=== PATIENT | female | born 1980 | race African-American/Black ===

== ENCOUNTER 2024-09-14 15:46 | Outpatient (CLI) | payer BC, SELFPAY ==
--- NOTE | ~2024-09-14 | US_ITS ---
EXAMINATION: US thyroid DATE: 09/14/2024 16:50 INDICATION: Thyroid nodule TECHNIQUE: Multiple ultrasound images of the thyroid were obtained. COMPARISON: None. FINDINGS: The right thyroid lobe measures 5.7 x 1.7 x 1.5 cm. The left thyroid lobe measures 5.1 x 1.4 x 2.1 cm. Within the upper pole of the left lobe of the thyroid gland is a 16 x 9 x 9.4 mm nodule: Composition - spongiform Echogenicity -hyperechoic or isoechoic (1) Shape - wider than tall Margin - smooth Echogenic foci -punctate echogenic foci (3) = TR 4, moderately suspicious FNA if greater than or equal to 1.5 cm Follow if greater than 1 cm The isthmus measures 0.4cm in anterior to posterior dimension. There is otherwise normal echotexture and echogenicity throughout the remainder of the thyroid gland. No additional discrete nodules identified. Normal vascular flow is present. IMPRESSION: TR 4 nodule within the upper pole of the left lobe of the thyroid gland (largely secondary to the otilio rocalcifications) for which FNA is recommended. Reviewed, dictated and finalized at location A. IMPRESSION: TR 4 nodule within the upper pole of the left lobe of the thyroid gland (largel y secondary to the microcalcifications) for which FNA is recommended.
--- OUTSIDE RECORDS SUMMARY | 2024-09-14 15:52 | XMS_ITS | Clinical Summary ---
Author Organization [facility] Address [facility] [place] [address] Care Team Providers Care Anesthesia Associate Name Role Phone Abby Benitez MD Primary Care Provider [phone] Medications losartan (COZAAR) 100 MG tablet Take 1 tablet (100 mg total) by mouth daily. Active amLODIPine (NORVASC) 10 MG tablet Take 1 tablet (10 mg total) by mouth daily. Active methylPREDNISo MISSY yun, (MEDROL DOSEPAK) 4 MG tabletIndicati ons:Foraminal stenosis of cervical region,Cervica l radiculopathy, Myofascial neck pain Take 1 tablet (4 mg total) by mouth see administration instructions. Follow package directions 1 each Active Active Problems Problem Noted Date Diagnosed Date Foraminal stenosis of cervical region 08/03/2024 Cervical radiculopathy 08/03/2024 Degenerative disc disease, cervical 08/03/2024 Spinal stenosis of cervical region 08/03/2024 Encounters Date Type Department Care Team Description 08/03/2024 11:00 AM CHIEF OPERATOR REFORMER Office Visit [facility] - [address], [address] [place] [phone] Michelle Chaudhary APRN New Patient (Cervical Spine ) 08/03/2024 Travel from Last 3 Months Social History Tobacco Use Types Packs/Day Years Used Date Smoking Tobacco: Every Day Cigarettes Smokeless Tobacco: Never Tobacco Cessation:Ready to Q uit: No; Counseling Given: No PHQ-2 Answer Date Recorded Patient Health Questionnaire-2 Score 0 08/03/2024 Comments Unknown Sex and Gender Information Value Date Recorded Sex Assigned at Not on file Legal Sex Female 1:00 PM CDT Gender Identity Not on file Sexual Orientation Not on file Last Filed Vital Signs Vital Sign Reading Time Taken Comments Blood Pressure 173/10 08/03/2024 11:29 AM CHIEF OPERATOR REFORMER Pulse 70 08/03/2024 11:06 AM CHIEF OPERATOR REFORMER Temperature 36.6 C (97.9 F) 08/03/2024 11:06 AM CHIEF OPERATOR REFORMER Respiratory Rate - - Oxygen Saturation 99% 08/03/2024 11:06 AM CHIEF OPERATOR REFORMER Inhaled Oxygen Concentration - - Weight 89.1 kg (196 lb 6.4 oz) 08/03/2024 11:06 AM CHIEF OPERATOR REFORMER Height 172.7 cm (5' 8 ) 08/03/2024 11:06 AM CHIEF OPERATOR REFORMER Body Mass Index 29.86 08/03/2024 11:06 AM CHIEF OPERATOR REFORMER Plan of Treatment Upcoming Encounters Date Type Department Care Team (Late st Contact Info) Description 09/28/2024 10:20 AM CDT Office Visit [facility] - [facility] [address] [facility], [address] [place] [phone] Michelle Chaudhary APRN [address] [facility] [address] [place] [address] Health Maintenance Due Date Last Done Comments Cervical Cancer Screening Pa p Smear (Age 30 to 64) Every 3 Years 1981 Annual Physical 1984 Pneumococcal Vaccine: Pediat rics (0 to 5 Years) and At-Risk Patients (6 to 64 Years) (1 of 2 - PCV) 10/15/1987 Hepatitis C 10/15/1999 DTaP, Tdap and Td Vaccines ( 1 - Tdap) 2000 Hepatitis B Vaccines (1 of 3 - 19+ 3-dose series) 2000 Cervical Cancer Screening Pa p with HPV Testing (Age 30 to 64) Every 5 Years 10/15/2011 Cervical Cancer Screening with HPV 10/15/2011 Mammogram Screening 2021 COVID-19 Vaccine ( - 2023-2 5 season) 2024 PHQ-2 (Physician [place]) Completed 08/03/2024 HPV Vaccines Aged Out No longer eligi ble based on patient's age to complete this topic Meningococcal B Vaccine Aged Out No l onger eligible based on patient's age to complete this topic Meningococcal Vaccine Aged Out No brandan maikol eligible based on patient's age to complete this topic RSV Immunizations Under 20 Months Aged Out No longer eligible based on patient's age to complete this topic Insurance MEDICAID [id number] Care Teams Anesthesia Associate Relationship Specialty [place] [address] [place] [id number] PCP - General INTERNAL MEDICINE 02/04/24
--- OUTSIDE RECORDS SUMMARY | 2024-09-14 15:53 | XMS_ITS | Data Portability ---
Author Organization [facility] Hannah Serrano Address [address] [place] [address] Care Team Providers Care Design Draftsman Name Role Phone ABBY MONTEZ Primary Care Provider [phone] Assessment No assessment recorded. Plan of Treatment Reminders Order Date Submit Date Provider Last Modified By Organization Details Last Modified Time Details Appointments ANY 15 2024 09:15A M Abby Montez MD Not available Not available Not available Lab PPD (purifie d protein derivati ve), skin test 2023 024 JOHN In-Office Order, Internal Use Only DO Not Attach Compendium DO Not Attach Compendium, Do Not Delete/merge, [id number] 01/26/2024 19:01:25 PPD (purifie d protein derivati ve), skin test 2023 024 JOHN In-Office Order, Internal Use Only DO Not Attach Compendium DO Not Attach Compendium, Do Not Delete/merge, [id number] 01/19/2024 19:14:41 vitamin D, 25-hydro xy, total, serum 2023 024 [place], [address], [address] [address], [place], [address], 11/16/2023 06:17:49 Referral None recorded . Procedures None recorded . Surgeries None recorded . Imaging XR, shoulder , 1 view 2023 024 [facility] ([facility]), [address] [place], [address], 02/21/2024 16:13:52 Medication Orders ergocalc iferol (vitamin D2) 1,250 mcg (50,000 unit) capsule 2024 025 [id number], [address], [place], [place], [id number], 06/22/2024 10:40:09 ibuprofe n 600 mg tablet 2024 025 [facility] #[id number], [address], [place], [place], [id number], 06/22/2024 10:40:11 amlodipi ne 10 mg tablet 2023 024 [facility] #[id number], [address], [place], [place], [id number], 02/17/2024 17:43:39 losartan 25 mg tablet 2023 024 [facility] #[id number], [address], [place], [place], [id number], 02/17/2024 17:41:43 Tubersol 5 tub. unit/0.1 mL intrader mal injectio n solution 2023 024 [email or web address] Not available 01/24/2024 20:24:56 Tubersol 5 tub. unit/0.1 mL intrader mal injectio n solution 2023 024 [email or web address] Not available 01/17/2024 16:53:03 ergocalc iferol (vitamin D2) 1,250 mcg (50,000 unit) capsule 2023 024 [place], [address] [place] [address], [id number], 10/25/2023 18:04:38 Patient Targets Encounter Date Encounter Id Patient Goals Patient Target Last Modified By Organization Details Last Modified Time Physically cleared for normal employment activities. TB skin test administered and is pending. [email or web address] Not available 01/17/2024 16:46:05 Patient Instructions Encounter Date Encounter Id Patient Instructions Last Modified By Organization Details Last Modified Time 10/25/2023 [id number] thyroid nodules: care instructions Not available 10/25/2023 17:36:56 A healthy lifestyle: care instructions [email or web address] Not available 10/25/2023 17:35:10 01/17/2024 [id number] A healthy lifestyle: care instructions [email or web address] Not available 01/17/2024 16:46:18 Quitting Tobacco : Care Instructions [email or web address] Not available 01/17/2024 16:46:18 tuberculin skin test: care instructions Not available 01/17/2024 16:46:18 01/24/2024 [id number] A healthy lifestyle: care instructions [email or web address] Not available 01/24/2024 17:36:12 02/17/2024 [id number] learning about high blood pressure Not available 02/17/2024 17:39:41 06/22/2024 [id number] thyroid nodules: care instructions [email or web address] Not available 06/22/2024 10:39:53 learning about high blood pressure [email or web address] Not available 06/22/2024 10:39:53 Reason for Referral None Reported. Results Created Date Observation Date Name Description Value Unit Range Abnormal Flag Note LastModifiedBy Organization Detail LastModifiedTime 11/15/1911/16/2023 THYRO XINE (T4) FREE, DIREC T T4,free(dire ct) 1.03 NG/dL 0.82-1 .77 Not Available [facility] ([facility]) [address] [place], [address], 11/16/2023 06:17:47 11/15/1911/16/2023 TRIIO DOTHY MELISSA E (T3), FREE triiodothyro nine (T3), free 2.7 pg/mL 2.0-4. 4 Not Available [facility] ([facility]) [address] [place], [address], 11/16/2023 06:17:47 11/15/19 24 11/16/2023 VITAM IN D, 25-HY DROXY vitamin D, 25-hydroxy 14.0 NG/mL 30.0-1 00.0 below low normal Vitam in D defic iency has been defin ed by the Insti tute of Medic ine and an Endoc rine Socie ty pract ice guide line as a level of serum 25-OH vitam in D less than 20 ng/mL (1,2) . The Endoc rine Socie ty went on to furth er defin e vitam in D insuf ficie ncy as a level betwe en 21 and 29 ng/mL (2). 1. IOM (Inst itute of Medic ine). 2009. Elias ry refer ence balbir es for calci um and D. Horace lagunas [place]: The [facility] . 2. Larry whitley MF, Arias cueva [place], Zachariah off-F errar i LANDRY, et al. Evalu ation , treat ment, and preve ntion of vitam in D defic iency : an Endoc rine Socie ty clini tiffany pract ice guide line. JCEM. 2010; 96(7) :1911 -30. Not Available [facility] ([facility]) [address] [facility], [place], [address], 11/16/2023 06:17:49 01/19/20 24 01/19/2024 PPD (lindsey fied prote in deriv ative ), skin test Result Negati ve Not Available In-Office Order Internal Use Only DO Not Attach Compendium DO Not Attach Compendium, Do Not Delete/merge, [id number] 01/17/2024 16:45:09 01/26/20 24 01/26/2024 PPD (lindsey fied prote in deriv ative ), skin test Result Negati ve Not Available In-Office Order Internal Use Only DO Not Attach Compendium DO Not Attach Compendium, Do Not Delete/merge, [id number] 01/24/2024 17:36:04 10/04/19 24 10/04/2023 MRI, cervi tiffany spine , w/o contr ast No observ ation record ed. [address] [place], [address], 10/17/2023 21:51:39 10/30/19 24 10/30/2023 XR, chest No observ ation record ed. [address] [place], [address], 10/31/2023 16:56:07 02/21/20 24 02/21/2024 XR, shoul ángela, 1 view No observ ation record ed. [facility] [address] [place], [address], 02/24/2024 14:40:39 04/12/20 24 04/12/2024 US, james t, unila teral , limit ed No observ ation record ed. [facility]uling [address] [place], [address], 04/21/2024 14:04:30 04/12/20 24 04/12/2024 US, james elmore, unila teral No observ ation record ed. [facility] Scheduling [address] [place], [address], 04/21/2024 14:04:31 Result Notes None recorded. Problems Name Problem SNOMED Code Status Onset Date Resolution Date Notes Provider Name and Address Organization Details Recorded Time Chronic constipat ion 980558880 Active 2016 Not Available [facility] 3 18:57:18 Family history of diabetes mellitus 204531127 Active 2018 Not Available [facility] 3 18:57:18 Herpes simplex type 2 infection 482476875 Active 2016 Not Available [facility] 3 18:57:18 Difficult y swallowin g pills 39109065547 01 Active 2018 Not Available [facility] 3 18:57:19 Edema of lower leg 525625646 Active 2018 Not Available [facility] 3 18:57:18 Infection by Trichomon as 68975522 Active 2019 Not Available [facility] 3 18:57:19 Tuberculo sis screening Active 2020 [facility] 18:57:18 Upper abdominal pain 41589347 Active 2020 RUQ/LUQ Not Available [facility] 3 18:57:19 Essential hypertens ion 72852478 Active 2021 [facility] Available [facility] 18:57:19 Mammograp hy abnormal 322681702 Active 2021 Not Available [facility] 3 18:57:18 Anemia 973324048 Active 2021 Not Available [facility] 3 18:57:18 Chest pain 94975632 Active 2021 Not Available [facility] 3 18:57:18 Hyperglyc emia 35175653 Active 2021 Not Available [facility] 3 18:57:19 Pain of right knee joint 17553358611 4100 Active 2022 Not Available [facility] 3 18:57:18 Atypical chest pain 786174995 Active 2022 Not Available [facility] 3 18:57:18 Carotid bruit present 586063650 Active 2022 Left Not Available [facility] 3 18:57:18 Hematoche mani 698633913 Active 2022 Not Available [facility] 3 18:57:18 Family history of polyp of colon 605141838 Active 2022 Not Available [facility] 3 18:57:18 Vitamin D deficienc y 31571487 Active 2022 Not Available [facility] 3 18:57:18 Pain of left shoulder joint 95718573050 982788 Active 2023 Abby Montez MD Attn: [place], [address] , [facility] 4 17:30:24 Thyroid stimulati ng hormone level below reference range 193585155 Active 2023 Abby Montez MD Attn: Accounting ,[address] [facility], [place], [address] , [place] [facility] 4 10:54:39 Weakness of left upper limb Active 2023 Abby Montez MD Attn: Accounting ,[address] [facility], [place], [address] , [place] [facility] 4 16:44:57 Thyroid nodule 086653625 Active 2023 left Abby Montez MD Attn: Accounting ,[address] [facility], [place], [address] , [place] [facility] 4 16:48:45 Disorder of cervical spine 634667014 Active 2023 Abby Montez MD Attn: Accounting ,[address] [facility], [place], [address] , [place] [facility] 4 17:26:54 Bacterial vaginosis 054129306 Active Not Available [facility] 3 18:57:18 Hand pain 02905855 Active Not Available [facility] 3 18:57:18 Carpal tunnel syndrome 79680025 Active Not Available [facility] 3 18:57:19 Urinary tract infectiou s disease 87152674 Active 2015 [facility] Not Available [facility] 3 18:57:19 History of bronchiti s 945425023 Active 2015 used inhaler last 12\04\201 6 Not Available [facility] 3 18:57:18 Problem Notes None recorded. Procedures Surgical History Date Name Laterality Status Provider Name and Address Organization Details Recorded Time 12/29/2021 Date of Last Pap Smear completed Claudia Arcos [place] [facility] 08/05/2023 11:51:02 Imaging Results Imaging Date Name Status LastModified by Organiz ation Details LastModified Time 10/04/2023 MRI, cervical spine, w/o contrast [place] [address] [place], [address], 10/17/2023 21:51:39 10/30/2023 XR, chest completed [email or web address] [place], [address], 10/31/2023 16:56:07 02/21/2024 XR, shoulder, 1 view completed [facility] [address] [place], [address], 02/24/2024 14:40:39 04/12/2024 US, breast, unilateral, limited completed [facility]uling [address] [place], [address], 04/21/2024 14:04:30 04/12/2024 US, breast, unilateral completed [facility] Scheduling [address] [place], [address], 04/21/2024 14:04:31 Procedure Notes None recorded. Medical Equipment None Reported. Allergies No known drug allergies Medications Name Sig Start Date Stop Date Status Note LastModified by Organization Details LastModified Time cyclobenzap rine 10 mg tablet 12/29 completed Not Available Not Available Not Available amoxicillin 500 mg capsule 10/15 completed Not Available Not Available Not Available clindamycin HCl 300 mg capsule 12/29 completed Not Available Not Available Not Available azithromyci n 250 mg tablet 06/01 completed Not Available Not Available Not Available ibuprofen 800 mg tablet 12/29 completed Not Available Not Available Not Available fluconazole 150 mg tablet TAKE 1 TABLET BY MOUTH AFTER A MEAL NEEDED 06/12 completed Not Available Not Available Not Available hydrocodone 5 mg-acetamin ophen 325 mg tablet 05/18 completed Not Available Not Available Not Available meloxicam 15 mg tablet 12/29 completed Not Available Not Available Not Available metronidazo le 0.75 % (37.5 mg/5 gram) vaginal gel Insert 1 applicato rful every day by vaginal route at bedtime for 5 days. 06/12 completed Not Available Not Available Not Available ondansetron HCl 4 mg tablet 12/29 completed Not Available Not Available Not Available Tubersol 5 tub. unit/0.1 mL intradermal injection solution Administe r .1ml interderm ally 2023 active Not Available Not Available Not Avai lable metronidazo le 250 mg tablet Take 1 tablet 3 times a day by oral route with meals for 7 days. 12/29 completed Not Available Not Available Not Available metronidazo le 500 mg tablet TAKE ONE TABLET TWICE DAILY BY ORAL ROUTE WITH MEALS FOR SEVEN DAYS 10/15 completed Not Available Not Available Not Available acetaminoph en 300 mg-codeine 30 mg tablet 12/16 completed Not Available Not Available Not Available acyclovir 400 mg tablet Take 1 tablet twice a day by oral route with meals for 60 days. 12/29 completed Not Available Not Available Not Available peg-electro lyte solution 420 gram oral solution USE DIRECTED 07/27 completed Not Available Not Available Not Available amlodipine 10 mg tablet TAKE 1 TABLET BY MOUTH EVERY MORNING active Not Available Not Available No t Available acyclovir 5 % topical ointment APPLY TO THE AFFECTED AREA(S) BY TOPICAL ROUTE EVERY 3 HOURS 6 TIMES PER DAY 12/29 completed Not Available Not Available Not Available losartan 25 mg tablet Take 1 tablet every day by oral route. 2023 active Not Available Not Available Not Avai lable docusate sodium 100 mg capsule Take 1 capsule every day by oral route. 12/29 completed Not Available Not Available Not Available ergocalcife rol (vitamin D2) 1,250 mcg (50,000 unit) capsule Take 1 capsule every week by oral route. 2024 active Not Available Not Available Not Avai lable ibuprofen 600 mg tablet Take 1 tablet 3 times a day by oral route as needed. 2024 active Not Available Not Available Not Avai lable levofloxaci n 750 mg tablet 06/12 completed Not Available Not Available Not Available methylpredn isolone 4 mg tablets in a dose pack FOLLOW PACKAGE DIRECTION S active Not Available Not Available No t Available albuterol sulfate HFA 90 mcg/actuati on aerosol inhaler active Not Available Not Available Not Available losartan 100 mg tablet TAKE 1 TABLET BY MOUTH EVERY DAY active Not Available Not Available No t Available naproxen 500 mg tablet Take 1 tablet twice a day by oral route as needed for 10 days. 12/29 completed Not Available Not Available Not Available nitrofurant oin monohydrate /macrocryst als 100 mg capsule 06/12 completed Not Available Not Available Not Available 28 mg iron-800 mcg tablet Take 1 tablet every day by oral route for 30 days. 09/06 completed Not Available Not Available Not Available Linzess 145 mcg capsule TAKE ONE CAPSULE BY MOUTH EVERY DAY with a meal 10/15 completed Not Available Not Available Not Available Vitals Date Recorded Body height Body mass index (BMI) Body weight Heart rate Oxygen saturation Oxygen saturation in Arterial blood by Pulse oximetry Systolic blood pressure Diastolic blood pressure Provider Name and Address Organization Details Last Updated DateTime 4 172.72 cm 29.2 kg/m2 80707.7 4 g 86 /min 97 % 97 % 142 mm[Hg] 88 mm[Hg] Teetee Padilla MA [facility] 4 17:15:48 Date Recorded Body height Body mass index (BMI) Body weight Oxygen saturation Oxygen saturation in Arterial blood by Pulse oximetry Heart rate Respiratory rate Body temperature Systolic blood pressure Diastolic blood pressure Provider Name and Address Organization Details Last Updated DateTime 4 172.72 cm 29.2 kg/m2 61673.7 4 g 99 % 99 % 74 /min 16 /min 98.1 [degF] 148 mm[Hg] 89 mm[Hg] Liam Talbert MA [facility] 4 16:37:36 Date Recorded Body height Body mass index (BMI) Body weight Oxygen saturation Oxygen saturation in Arterial blood by Pulse oximetry Heart rate Body temperature Systolic blood pressure Diastolic blood pressure Provider Name and Address Organization Details Last Updated DateTime 4 172.72 cm 29.6 kg/m2 31828.0 7 g 100 % 100 % 73 /min 98.6 [degF] 127 mm[Hg] 81 mm[Hg] Nasima Milton MA [facility] 4 17:28:27 Date Recorded Body height Body mass index (BMI) Body weight Heart rate Oxygen saturation Oxygen saturation in Arterial blood by Pulse oximetry Systolic blood pressure Diastolic blood pressure Provider Name and Address Organization Details Last Updated DateTime 4 172.72 cm 29.2 kg/m2 12869.7 4 g 81 /min 98 % 98 % 130 mm[Hg] 80 mm[Hg] Lexus Lo MA [facility] 4 16:48:09 Date Recorded Body height Body mass index (BMI) Body weight Oxygen saturation Oxygen saturation in Arterial blood by Pulse oximetry Heart rate Systolic blood pressure Diastolic blood pressure Provider Name and Address Organization Details Last Updated DateTime 5 172.72 cm 30.4 kg/m2 18428.4 7 g 98 % 98 % 71 /min 125 mm[Hg] 77 mm[Hg] Artur Cruz MA [facility] 5 10:17:59 Social History Question Answer Notes LastModified by Organizat ion Details LastModified Time Tobacco Smoking Status Current Some Day Smoker Beatriz King MA [facility] 09/07/2023 16:17:25 Do You Have An Advance Directive? No Information not available 12/29/2021 What Is Your Level Of Alcohol Consumption? None [email or web address] Information not available 05/16/2015 Is Blood Transfusion Acceptable In An Emergency? No [email or web address] Information not available 05/16/2015 What Is Your Level Of Caffeine Consumption? Heavy [email or web address] Information not available 05/16/2015 How Much Tobacco Do You Chew? None [email or web address] Information not available 05/16/2015 In The 14 Days Before Symptom Onset, Have You Had Close Contact With A Laboratory-confir med COVID-19 While That Case Was Ill? No Information not available 12/29/2021 In The 14 Days Before Symptom Onset, Have You Had Close Contact With A Person Who Is Under Investigation For COVID-19 While That Person Was Ill? No Information not available 12/29/2021 Have You Been To An Area Known To Be High Risk For COVID-19? No Information not available 12/29/2021 Are You Currently Employed? Yes [email or web address] Information not available 05/16/2015 What Type Of Diet Are You Following? REGULAR Information not available 05/16/2015 Which Illicit Or Recreational Drugs Have You Used? 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 Alone [email or web address] Information not available 05/16/2015 What Was The Date Of Your Most Recent Tobacco Screening? 06/22/2024 Information not available 06/22/2024 How Many Children Do You Have? 1 [email or web address] Information not available 05/16/2015 What Is Your Current Pack Years? [email or web address] Information not available 01/24/2024 Performs Monthly Self-breast Exam? Yes [email or web address] Information no t available 05/16/2015 Do You Use Protection During Sex? Usually 80% [email or web address] Information not available 05/16/2015 What Is Your Relationship Status? Single [email or web address] Information not available 05/16/2015 Seat Belts Used Routinely Yes Information not available 05/16/2015 Are You Sexually Active? Yes [email or web address] Information not available 05/16/2015 Do You Have Smoke And Carbon Monoxide Detectors In Your Home? Yes Information not available 12/29/2021 At What Age Did You Start Smoking Tobacco? 16 [email or web address] Information not available 05/16/2015 Are You Passively Exposed To Smoke? Yes Information no t available 12/29/2021 How Much Tobacco Do You Smoke? 1 PPW About 1 Daily [email or web address] Information not available 07/27/2023 General Stress Level Low [email or web address] Information not available 05/16/2015 Do You Feel Stressed (tense, Restless, Nervous, Or Anxious, Or Unable To Sleep At Night)? [id number] Information not available 01/24/2024 Do You Use Any Illicit Or Recreational Drugs? No Information not available 12/29/2021 Do You Use Sunscreen Routinely? No [email or web address] Information not available 05/16/2015 Has Tobacco Cessation Counseling Been Provided? Yes Information not available 12/29/2021 On What Date Was Tobacco Cessation Counseling Provided? 06/22/2024 Information not available 06/22/2024 How Many Years Have You Smoked Tobacco? 18 Information not available 05/16/2015 Do You Or Have You Ever Used Any Other Forms Of Tobacco Or Nicotine? No Information not available 12/29/2021 Sex: Female Functional Status Question Answer Note LastModified by Organization D etails LastModified Time What is your exercise level? Moderate [email or web address] Information not available 05/16/2015 Mental Status None recorded. Family History Relationship Description Onset Age of this Age Resolved Age Notes LastModified by Organization Details LastModified Time Mother Diabetes mellitus [email or web address] rs Not available 11/26/2015 11:04:11 Sister Diabetes mellitus alesha rs Not available 11/26/2015 11:04:11 Maternal Grandmother Hypertensive disorder [email or web address] rs Not available 11/26/2015 11:04:11 Maternal Grandmother Diabetes mellitus alesha rs Not available 11/26/2015 11:04:11 Medical History Condition Response Other Y High Blood Pressure N Breast Cancer N Thyroid Problems N Kidney or Bladder Problems Y GI Problems N Depression N Blood Clots N Lung Disease N Acne N Breast Problem N Eating Disorder N Anemia N Anesthesia Complications N Headaches/Migraines Y Anxiety Disorder N Diabetes N Ovarian Cancer N Muscle, Joint, or Bone Problems N Blood Transfusions N Seizures/Epilepsy N Polyps N Infertility N Acid Reflux (GERD) N Cancer N Abuse/Domestic Violence N Asthma N Endometriosis N High Cholesterol N Hepatitis N Liver Disease N Heart Disease N Pre-Eclampsia N Osteoporosis N Gynecological History Statement/Question Response Abnormal Pap N Flow Heavy Date of LMP 06/05/2024 On BCP's at Conception? Y STIs/STDs N HPV Vaccine N Duration of Flow (days) 7 Most Recent Mammogram Age at Menarche 13 Current Control Method None Age at First Child 19 Frequency of Cycle (Q days) 28 Sexually Active? Y Menses Monthly Y Date of Last Pap Smear 12/29/2021 Sexual Problems? N LMP Approximate Desired Control Method Seeking Pre gnancy Obstetrics History GPAL:G 1 P 1 0 0 1 Type Value Multiple Births 0 Full Term 1 Induced 0 Spontaneous 0 Premature 0 Living 1 Ectopics 0 Total 1 Immunizations Vaccine Type Date Status Note Provider Nam e and Address Organization Details Recorded Time Influenza, high-dose, trivalent, PF 05/16/2015 completed Not Available [facility] 2022 18:57:19 Past Encounters Encounter ID Performer Location Encounter Start Date Encounter Closed Date Diagnosis/Indication Diagnosis SNOMED-CT Code Diagnosis ICD10 Code Diagnosis Note [id number] Marita Carrillo [facility] (AUDITOR SUPERVISOR) [address] [place] [phone] 05/16/2015 10:12:02 05/16/2015 17:34:29 Gynecologic examination 44065909 Z01.411 Bacterial vaginosis 4197 55704 N76.0 High risk sexual behavior 991020028 Z72.51 desires no BCM c\o tender breast [id number] Francia [facility] (Adult/Fa m Med) [address] [place] [address] 9 09/24/2015 11:03:32 09/25/2015 11:05:04 Hand pain 54700840 M79.641 Carpal karl gissel syndrome 27121387 G56.01 [id number] Francia [facility] (Adult/Fa m Med) [address] [place] [address] 9 10/08/2015 10:32:20 10/08/2015 12:48:12 Carpal tunnel syndrome 47646022 G56.01 Hand pain 46833592 M79.6 41 [id number] Marita Carrillo [facility] (AUDITOR SUPERVISOR) [address] [place], [place] [id number] 9 11/26/2015 10:44:57 11/26/2015 16:21:44 Urinary tract infectious disease 30381635 N39.0 f\u today r\t UTI @ [facility] on took all meds and denies cont. S & S urine C & S to lab today. denies unprotecte d coitus with current sex partner of X 6 years; denies hx. of STI's. High risk sexual behavior 495444032 Z72.51 admits to unprotecte d coitus with new sex partner of X 90 days. [id number] Marita Carrillo [facility] (AUDITOR SUPERVISOR) [address] [place] [id number] 05/18/2016 10:25:36 07/29/2016 11:51:58 Gynecologic examination 97196013 Z01.411 pap was WNL; c\o constipati on Chronic constipation 236 484333 K59.00 discussed water intake 5-6 rafy jars daily, but still has constipati on Exposure t o sexually transmissible disorder [id number] Z20.2 with current sex partner X 18 mo. gives no previous hx. of STI's until today will r\o other STI's also request & received Blood STI screening also Trichomona l vulvovaginitis 24160743 A59.01 on wet mount today [id number] Marita Carrillo [facility] (AUDITOR SUPERVISOR) [address] [place], [place] [address] 06/09/2016 10:26:30 06/17/2016 11:36:45 Exposure to sexually transmissible disorder 459444012 Z20.2 with current sex partner X 18 mo. gives no previous hx. of STI's until will r\o other STI's also request & received Blood STI screening also Herpes sim plex type 1 infection 831464989 B00.9 Herpes sim plex type 2 infection 124357246 B00.9 Leukocytes in urine 2757 65617 R82.71 [id number] [facility] (Adult/Fa m Med) [address] [place], [place] [address] 05/03/2017 10:21:49 05/19/2017 17:03:33 Screening for disorder 389498494 Z13.9 Venereal d isease screening 126729413 Z11.3 [id number] [facility] (Adult/Fa m Med) [address] [place] [address] 9 05/17/2017 10:39:26 05/26/2017 10:46:42 Increased blood pressure 43704958 R03.0 High risk sexual behavior 233539427 Z72.51 Screening for disorder 563806084 Z13.9 [id number] Marita Carrillo [facility] (AUDITOR SUPERVISOR) [address] [place] [address]78[address]632 9 06/01/2017 11:48:54 06/02/2017 11:09:38 Gynecologic examination 73461617 Z01.411 History of sexually transmitted disease 938974416 Z87.42 dx. per Darren Almanzar treatment recieved today. Trichomona l vulvovaginitis 87415172 A59.01 Chronic constipation 236 133798 K59.09 Herpes sim plex type 2 infection 152920081 B00.9 [id number] Abby Montez MD [facility] (Adult Med) [address] [place] [address] 07/07/2018 10:46:27 07/08/2018 12:47:31 Chronic constipation 384425971 K59.09 Elevated blood-pressure reading without diagnosis of hypertension 712259430 R03.0 Family his tory of diabetes mellitus 078793778 Z83.3 [id number] [facility] [address] [place] [address] 9 07/27/2018 11:19:40 07/29/2018 10:12:01 Gynecologic examination 66380829 Z01.715 [id number] [facility] [address] [place] [address] 9 08/18/2018 12:01:26 08/18/2018 14:57:49 Venereal disease screening 259267369 Z11.3 f\u r\t hx. of + trichomona s on . [id number] [facility] [address] [place] [address] 9 09/06/2018 10:25:56 09/08/2018 15:30:45 Exposure to genital trichomoniasis 598084259 Z20.2 test results are still + for trichomona s since recieved meds tooK ALL meds but advised today that patient had several episodes of emesis with rx. recieved f\u testing remains + on . Nausea and vomiting 1693 1999 R11.2 with previous meds r\t + trichomona s has issues swallowing pills wants to try STAT dose of four tablets @ once with nausea meds rx. recieved today. advised tro try crushing tablets with applesauce to swallow. Increased frequency of urination 770375124 R35.0 Mat. G- MOM & mom r\t diabetes HGB A 1 c negative recently on . Venereal d isease screening 720600509 Z11.3 f\u r\t hx. of + trichomona s on ; second f\u remains + on emesis of meds problem swallowing pills. [id number] MD Benji Vera (Adult Med) [address] [place] [address] 0 06/12/2019 16:30:13 06/12/2019 17:43:04 Edema of lower leg 843489232 R60.0 History of bronchitis 27 3698285 Z87.09 [id number] [facility] [address] [place] [address] 01/03/2020 14:12:27 01/23/2020 21:29:19 Gynecologic examination 13169951 Z01.411 last pap was abnormal r\t + trichomona s otherwise negative for malignancy & HR\MONTSERRAT was also negative. Leukocytes in urine 2757 27397 R82.71 trace with protien & nitrates c\o urinary frequency too. Dysuria-fr equency syndrome 5322817 R35.0 [id number] MD Benji Vera (Adult Med) [address] [place] [address] 0 07/23/2020 08:08:15 07/24/2020 11:49:25 Tuberculosis screening 322599325 Z11.1 Family his tory of diabetes mellitus 394784863 Z83.3 Elevated blood-pressure reading without diagnosis of hypertension 289961794 R03.0 BP check Chronic constipation 236 803790 K59.09 [id number] MD Benji Vera (Adult Med) [address] [place] [address] 0 05/06/2021 11:43:45 05/07/2021 10:28:35 Upper abdominal pain 66076663 R10.10 [id number] [facility] (Adult Med) [address] [place] [address] 0 12/29/2021 08:28:42 12/30/2021 09:20:33 Gynecologic examination 26916173 Z01.419 41 year old female presents today to establish OBGYN care and for WWE. Used to follow with Marita Mcguire for OBGYN care. Follows with Dr. Montez for primary care.LMP 12/18/2021La st pap smear 08/2018, normal, no abnormal papsNot on control- pap smear completed, will call with results Essential hypertension 85728112 I10 Hx of elevated blood pressure in the past but never diagnosed with HTN or started on medication , admits to it being elevated at other visits recentlyBP today: 172/96 and 160/90 Discussed DASH dietAdvise d 30 minutes of exercise minimum dailyAdvis ed tobacco, alcohol, caffeine all increase BPAdvised goal for BP is <140/90Con tact office if BP is > 140/90 consistent lyDIscusse d consequenc es of HTN including kidney, eye, heart damage, stroke, and even - Start amlodipine 10 mg, computers were not working this morning, paper script given to patient- return to see PCP in 2-4 weeks for BP check Venereal d isease screening 028807799 Z11.3 - STD check completed via nuswab during visit today for screening purposes Screening mammography 24 020712 Z12.31 Provided patient with mammogram order, she understand s she needs to call and schedule appointmen t Chronic constipation 236 832597 K59.09 Requesting refill on Linzess- will provide short term supply, will need to get this medication from PCP in the future [id number] MD Benji Vera (Adult Med) [address] [place] [address] 0 01/12/2022 11:28:13 01/13/2022 11:57:13 Essential hypertension 24179496 I10 Continue amlodipine [id number] JIM SCOTT (Adult Med) [address] [place] [address] 0 02/12/2022 09:05:47 02/17/2022 09:55:01 Infection by Trichomonas 50922953 A59.9 Pt tested positive for trich 12/29/21. Pt given rx for metronidaz ole and reports compliance with medication . States partner was treated as well.Idalmis lubin any urinary/va ginal sx today-Pt left urine sample today; will contact pt with results Mammography abnormal 168 762245 R92.8 Mammogram 01/15/2022 showed abnormal findings on R breast but likely benign, rec. repeat again in 6 months- rec. for patient to reach out 07/2022, will get that ordered for her at that time [id number] MD Benji Vera (Adult Med) [address] [place] [address]62[address]100 0 05/20/2022 17:13:45 05/21/2022 15:37:48 Anemia 113984794 D64.9 Trial iron Essential hypertension 03841451 I10 Stable. Continue amlodipine Family his tory of diabetes mellitus 312659415 Z83.3 Chest pain 42076199 R07. 9 Hyperglycemia 85652828 R 73.9 Chronic constipation 236 672751 K59.09 [id number] MD Benji Vera (Adult Med) [address] [place] [address]89-382 0 10/15/2022 16:52:57 10/19/2022 11:59:39 Obesity 160747677 E66.9 Pain of ri ght knee joint 5432338608 17694 M25.561 Essential hypertension 83476435 I10 Stable. Continue amlodipine Atypical chest pain 1025 68384 R07.89 No evidence ischemia Carotid bruit present 27 2013731 R09.89 [id number] MD Benji Vera (Adult Med) [address] [place] [address]91[address]487 0 12/16/2022 16:26:45 12/17/2022 13:04:35 Obesity 604364062 E66.9 Essential hypertension 75682167 I10 Stable. Continue amlodipine Anemia 274143424 D64.9 Trial iron Hyperglycemia 17341086 R 73.9 Pain of ri ght knee joint 9327860603 72192 M25.561 Hematochezia 434329637 K 92.1 Family his tory of polyp of colon 218639873 Z83.71 [id number] JIM SCOTT (Adult Med) [address] [place] [address]081 0 01/19/2023 12:22:08 01/20/2023 14:44:39 Mammography abnormal 962606901 R92.8 Mammogram 01/15/2022 showed abnormal findings on R breast but likely benign, rec. repeat again in 6 months but patient was lost to f/u until nowNo breast complaints today, requesting new referral- mammogram ordered today, call to schedule Overweight 526502625 E66 .3 Advised decreased portion sizes, good food choices, limited eating out or fast food and eliminate soda and juice from diet. Advised physical activity daily and offered encouragem ent to continue with positive changes made so far. Depression screening 171 615577 Z13.31 PHQ 2/9 was negative in office today (0 out of 27) [id number] MD Benji Vera (Adult Med) [address] [place] [address]80[address]413 0 04/19/2023 17:00:38 04/29/2023 12:27:44 Anemia 939408296 D64.9 Referral hematology . Oral B12 Vitamin D deficiency 347 45810 E55.9 Essential hypertension 15750446 I10 Stable. Continue amlodipine Family his tory of diabetes mellitus 384926914 Z83.3 [id number] JIM SCOTT (Adult Med) [address] [place] [address]186[address] 0 05/04/2023 15:08:10 05/05/2023 12:13:39 Overweight 117950286 E66.3 Advised decreased portion sizes, good food choices, limited eating out or fast food and eliminate soda and juice from diet. Advised physical activity daily and offered encouragem ent to continue with positive changes made so far. Mass of right breast 583 8728123 5238218 N63.10 History of abnormal mammogram presents today to discuss recent mammogram results.Ma mmogram 01/15/2022 showed abnormal findings on R breast but likely benign, rec. repeat again in 6 monthsMamm ogram 02/2023 showed focal asymmetry in the R breast at 10 o'clock position, US showed hypoechoic mass in the R breast, likely benign, repeat in 6 months- discussed findings with patient- ordered repeat diagnostic mammogram for 08/2023 [id number] MD Benji Vera (Adult Med) [address] [place] [address]845 0 07/27/2023 16:21:15 07/29/2023 08:08:15 Overweight 833086755 E66.3 Essential hypertension 55720120 I10 Elevated Continue amlodipine . Add losartan Hyperglycemia 31381332 R 73.9 Carpal karl gissel syndrome 12837564 G56.00 Anemia 580386889 D64.9 Referral hematology . Oral B12 Pain of le ft shoulder joint 0980974596 5116821 M25.313 [id number] MD Benji Narayan (Adult Med) [address] [place] [address] 83056-354 0 08/05/2023 11:30:30 08/09/2023 17:25:58 Trying to conceive 512211270 Z31.9 Abnormal u terine bleeding 3876667469 9100 N93.9 Menstrual interval less than thirty days. Has been that way for much of her menstrual time. Recently had an abnormal TSH. Thyroid abnormalit ies could contribute to abnormal bleeding patterns. Will repeat TSH. Essential hypertension 05500637 I10 Blood pressure controlled . Continue medication and follow up with PMD. Mammography abnormal 168 050005 R92.8 Follow up mammogram and ultrasound ordered for August. Patient will call to schedule. Nicotine user 104686105 Z72.0 Recommende d patient quit. [id number] Alli Larson MD [facility] [address] [facility] [address] [place] [address] 08/23/2023 15:30:07 08/24/2023 09:15:26 Trying to conceive 675446855 Z31.9 --Pt informed that she should use ovulation detection kits and have sex during ovulation- -Obtain sperm analysis of --S tart vitamins and folic acid Overweight 726065449 E66 .3 [id number] MD Benji Vera (Adult Med) [address] [place] [address]12[address] 0 09/07/2023 16:05:37 09/08/2023 11:10:14 Weakness of left upper limb 5606971964 04072 M62.81 Thyroid nodule 965430071 E04.1 Essential hypertension 52360701 I10 Recent BP at cardiology [place] . Will continue current medical regimen [id number] MD Benji Vera (Adult Med) [address] [place] [address]18[address]142 0 10/25/2023 16:48:49 10/27/2023 14:28:53 Overweight 806137402 E66.3 Vitamin D deficiency 347 37281 E55.9 Thyroid nodule 626504010 E04.1 F/U endocrinol ogy as scheduled Weakness o f left upper limb 3936870840 54935 M62.81 F/U NS as scheduled [id number] EVIE MujicaP-C [facility] [address] [place] [address] 01/17/2024 16:18:23 01/19/2024 11:58:50 Overweight 915719810 E66.3 Smoker 58455090 F17.200 Adult heal th examination 948349491 Z00.00 Tuberculos is screening 963157975 Z11.1 [id number] MADHU SANDS NP [facility] [address] [place] [address] 01/24/2024 17:12:48 01/25/2024 08:44:26 Overweight 429066858 E66.3 Tuberculos is screening 981335445 Z11.1 [id number] [facility] [address] [place] [address]26[address] 0 02/17/2024 16:29:41 02/17/2024 17:43:59 Disorder of cervical spine 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 Will continue current medical regimen Family his tory of diabetes mellitus 275864141 Z83.3 Pain of le ft shoulder joint 2958065568 5275535 M25.005 [id number] MD Benji Vera (Adult Med) [address] [place] [address]484-896 0 06/22/2024 09:57:19 06/23/2024 15:38:35 Vitamin D deficiency 07666372 E55.9 Disorder o f cervical spine 208569352 M53.81 F/U NS [facility] Essential hypertension 38347319 I10 Recent BP at cardiology [place] . Will continue current medical regimen Family his tory of polyp of colon 480623182 Z83.719 Pain of ri ght knee joint 7871187624 08843 M25.561 Weakness o f left upper limb 8992717741 13717 M62.81 F/U NS as scheduled Thyroid nodule 303597151 E04.1 F/U endocrinol ogy as scheduled Health Concerns Section Related Observation LastModified by Organization Detai ls LastModified Time None Recorded Concern Status LastModified by Organization Details LastModified Time None Recorded Advance Directives Directive N: Payers Encounter Date Sequence Insurance Name Policy Number Policy Huang Covered Member ID Huang Member ID Guarantor Name 10/25/2023 2 [place] [employer] Morenita Larkin [id number] [facility] 01/17/2024 1 [facility] (MEDICAID HM) [id number] Mroenita Larkin [id number] [facility] 01/24/2024 1 [facility] (MEDICAID HMO) [id number] Morenita Larkin [id number] [facility] 02/17/2024 1 [facility] (MEDICAID HMO) [id number] Morenita Larkin [id number] [facility] 06/22/2024 1 [facility] (MEDICAID HMO) [id number] Morenitasunitha Larkin [id number] [facility] Notes Date Note Type Note Provider Name and Address Organization Details Recorded Time 10/25/2023 text/html Here for routine f/u. No new complaints. Scheduled to see NS in three months and interventional physiatrist in six months Abby Montez MD Attn: [address] [place], [address], [facility] 10/25/2023 17:37:17 01/17/2024 text/html Is here for work physical and TB screening. BOWEN Mujica Attn: [address] [place], [address], [facility] 01/17/2024 16:46:36 01/24/2024 text/html Pt is a 43 yo fe male who request tb screening; this will be the second ppd in the series; 1st test negative MADHU WICHO, [employer] Attn: Account[address], [place], [address], [place] [facility] 01/24/2024 17:40:32 02/17/2024 text/html Has not seen NS Abby Montez MD Attn: [address], [place], [address], [place] [facility] 02/17/2024 17:40:45 06/22/2024 text/html Here for routine f/u. No new complaints. Scheduled to see NS and endocrinology within the next month. Needs refil on ibuprofen for painful knees Abby Montez MD Attn: Account[address], [place], [address], [place] [facility] 06/22/2024 10:40:19 OBGyn Episode Ob Episode Information Episode Created Date Number of Fetuses Patient Bloodtype Patient rh Status Prepregnancy Weight lbs Domestic Partner Domestic Partner Phone Father Name Superintendent Menagerie Status 12/30/19 22 1 CLOSED Fetus Data First Name Last Name Admitted to NICU Weight (g) Sex Living Outcome Pediatric Complications Fetus ID Race Codes Race Delivery Type M Full Term [id number] Mervin Calculation Initial Mervin Date Initial Exam Date Initial Exam Provider Initial Ultrasound Date Last Menstrual Period Date Ultra Sound Weeks Gestation 0 Eighteen To Twenty Week Mervin Update Ultra Sound Date Fundal Height At Umbil Quickening Date Ultra Sound Latest Weeks Gestation Final Mervin Confirmed By Final Mervin Confirmed Date Final Mervin Date Ultra Sound Latest Days Gestation 0 0 Menstrual History Last Menstrual Date Menses Monthly On Bcp Conception Prior Menses Frequency Hcg Plus Date Menarche Onset Age Delivery Information Delivery Date Delivery Type Labor Anesthesia Weeks Gestation Incision Type Labor Labor Length Hrs Delivered By Post Complications Tubal Sterilization Discharge Date Comments 0 Discharge Information Feeding Method Contraceptive Method Maternal HG B and HCT Levels
--- OUTSIDE RECORDS SUMMARY | 2024-09-14 15:53 | XMS_ITS | Data Portability ---
Author Organization [place] - [facility], Main Office Address [address] [place] [address] Assessment No assessment recorded. Plan of Treatment Reminders Order Date Submit Date Provider Last Modified By Organization Details Last Modified Time Details Appointments None recorded. Lab None recorded. Referral None recorded. Procedures colonoscopy procedure (PROC) 2022 023 [facility] (Pre-Screen), [address] [place], [address], 08:23:16 Surgeries None recorded. Imaging None recorded. Medication Orders Golytely 236 gram-22.74 gram-6.74 gram-5.86 gram oral solution 2022 023 [facility], [address] [place], [place], [phone], 11:23:43 Patient TargetsNo targets recorded. Patient Instructions Encounter Date Encounter Id Patient Instructions Last Modified By Organization Details Last Modified Time 02/03/2023 [id number] GOLYTELY [email or web address] Not available 15:03:58 PT WITH HEMATOCHEZIA AND BM CHANGES. PT NEEDS A SCREENING COLON . R/O POLYP . RECOMMEND A COLONOSOPY . Risks benefits and complications were explained to the pt. ( BLEEDING PERFORATION , INFECTION , ). PT VERBALIZES UNDERSTANDING AND IS WILLING TO PROCEDE . [email or web address] Not available 02/03/2023 15:04:34 Reason for Referral None Reported. Results Created Date Observation Date Name Description Value Unit Range Abnormal Flag Note LastModifiedBy Organization Detail LastModifiedTime 09/14/20 23 02/24/2023 colon oscop y proce dure (PROC ) No observ ation record ed. [email or web address] [facility] (Pre-Screen) [address] [place], [address], 02/25/2023 08:23:16 Result Notes None recorded. Procedures Surgical History None recorded. Imaging Results Imaging Date Name Status LastModified by Organiz ation Details LastModified Time 02/24/2023 colonoscopy procedure (PROC) completed [email or web address] [facility] (Pre-Screen) [address] [place], [address], 02/25/2023 08:23:16 Procedure Notes None recorded. Medical Equipment None Reported. Allergies No known drug allergies Medications Name Sig Start Date Stop Date Status Note LastModified by Organization Details LastModified Time amoxicillin 500 mg capsule 02/01 completed Not Available Not Available Not Available metronidazo le 500 mg tablet TAKE ONE TABLET TWICE DAILY BY ORAL ROUTE WITH MEALS FOR SEVEN DAYS 02/01 completed Not Available Not Available Not Available acetaminoph en 300 mg-codeine 30 mg tablet 02/01 completed Not Available Not Available Not Available peg-electro lyte solution 420 gram oral solution USE DIRECTED active Not Available Not Available No t Available amlodipine 10 mg tablet active Not Available Not Available Not Available ibuprofen 600 mg tablet 02/01 completed Not Available Not Available Not Available albuterol sulfate HFA 90 mcg/actuati on aerosol inhaler 2022 active Not Available Not Available Not Avai lable Golytely 236 gram-22.74 gram-6.74 gram-5.86 gram oral solution DIRECTED 2022 active Not Available Not Available Not Avai lable Linzess 145 mcg capsule TAKE ONE CAPSULE BY MOUTH EVERY DAY with a meal 02/01 completed Not Available Not Available Not Available Vitals Date Recorded Body height Body mass index (BMI) Body weight Heart rate Oxygen saturation Oxygen saturation in Arterial blood by Pulse oximetry Systolic blood pressure Diastolic blood pressure Provider Name and Address Organization Details Last Updated DateTime 3 172.72 cm 28.7 kg/m2 52671.9 6 g 80 /min 98 % 98 % 132 mm[Hg] 84 mm[Hg] IZABELLA Benson - [facility] 14:36:02 Social History Question Answer Notes LastModified by Organizat ion Details LastModified Time Tobacco Smoking Status Current Every Day Smoker IZABELLA Benson, [place] - [facility] 02/01/2023 09:53:41 What Is Your Level Of Alcohol Consumption? None Information not available 02/01/2023 Do You Use Any Illicit Or Recreational Drugs? No Information not available 02/01/2023 Sex: Unknown Functional Status None recorded. Mental Status None recorded. Family History Relationship Description Onset Age of this Age Resolved Age Notes LastModified by Organization Details LastModified Time Mother Diabetes mellitus [email or web address] Not available 2022 09:52:56 Sister Diabetes mellitus [email or web address] Not available 2022 09:52:56 Maternal Grandmother Diabetes mellitus [email or web address] Not available 2022 09:52:56 Maternal Grandmother Hypertensive disorder [email or web address] Not available 2022 09:53:08 Medical History Condition Response HYPERTENSION Y ANEMIA/BLOOD DISORDER Y Gynecological HistoryNo gynecological history recorded. Obstetrics History GPAL:G 0 P 0 0 0 0 Past Encounters Encounter ID Performer Location Encounter Start Date Encounter Closed Date Diagnosis/Indication Diagnosis SNOMED-CT Code Diagnosis ICD10 Code Diagnosis Note [id number] Rachell Jones MD [facility] General Surgery [address] [facility], [facility] [address] [place] [address] 02/03/2023 14:32:32 02/03/2023 15:10:35 Hematochezia 356839403 K92.1 Health Concerns Section Related Observation LastModified by Organization Detai ls LastModified Time None Recorded Concern Status LastModified by Organization Details LastModified Time None Recorded Advance Directives Directive None Recorded Payers Encounter Date Sequence Insurance Name Policy Number Policy Huang Covered Member ID Huang Member ID Guarantor Name 02/03/2023 1 [place] [id number] Morenita [id number] Morenita Larkin Notes Date Note Type Note Provider Name and Address Organization Details Recorded Time 02/03/2023 text/html MORENITA WAS SEEN I N THE OFFICE TODAY FOR EVALUATION .PT IS C/O CONTIPATION . BMs ARE GRADE 4 ON THE BSS. PT PATERNAL AUNT FROM COLON CA IN HER 50s . SHE ADMITS TO BLOOD IN HER STOOL. SHE DENIES WT LOSS / N/V. Rachell Jones MD [address] [place] [address], [facility] [address], [place], [address], [facility] 02/03/2023 15:05:09 OBGyn Episode No OBEpisode recorded.
--- OUTSIDE RECORDS SUMMARY | 2024-09-14 15:53 | XMS_ITS | CONTINUITY OF CARE DOCUMENT ---
Author Name shay, shay Address Unknown Organization [facility] Address [address] [place] [address] Phone [phone] Care Team Providers Care Rn Delivery Name Role Phone Dusitn Chaudhry MD Unavailable [phone] MARIA TERESA MONTEZ MD Unavailable MARIA TERESA MONTEZ MD Unavailable [phone] PROBLEMS Condition Status Date Provider Notes Shortness of breath (SOB) active Dustin karimi MD Anemia active Darrel Ni Essential hypertension active Darrel Ni Chest pain completed - Darrel Ni Abnormal electrocardiogram active Sugey escoto NP Family Hx heart disease active Sugey zapien [employer] Chest pain-type to be determined active Sugey Mei [employer] Tobacco abuse active Sugey Mei [employer] Snoring completed - Darrel Ni Sleep apnea, obstructive - n ot using cpap active Darrel Ni ENCOUNTERS Date Type Provider Location Encounter Diag nosis - In-person encounter Office Visit Dustin Chaudhry MD [place] [facility] - In-person encounter Office Visit Dustin Chaudhry MD [facility] Chest painSnoringSleep apnea, obstructive - not using cpap - In-person encounter Office Visit Dustin Chaudhry MD [place] - In-person encounter Office Visit Dustin Chaudhry MD [facility] Abnormal electrocardiogramFamily Hx heart diseaseChest pain-type to be determinedTobacco abuse VITAL SIGNS Date Observation Value Provider Body Mass Index (Ratio) 29.49 kg/m2 [facility] pressure, diastolic 77 mm[Hg] [facility] blood pressure, systolic 127 mm[Hg] Rad[facility] oxygen saturation, oximetry 99 % [facility] pulse rate 79 /min [facility] respiratory rate E&M 12 /min [facility] weight E&M 194 [lb_av] [facility] height E&M 68 [in_i] [facility] blood pressure, cuff size regular An [facility] Body Mass Index (Ratio) 29.34 kg/m2 [facility], cuff size regular Ke rri Albert blood pressure, diastolic 70 mm[Hg] Ke rri Albert blood pressure, systolic 122 mm[Hg] Srikanth ri David oxygen saturation, oximetry 98 % Swapna Hernandez respiratory rate E&M 12 /min Swapna zimmerman pulse rate 80 /min Swapna Mercado [facility] weight E&M 193 [lb_av] Swapna Mercado [facility] height E&M 68 [in_i] Swapna Mercado [facility] Body Mass Index (Ratio) 29.34 kg/m2 [facility], diastolic 81 mm[Hg] St sujye [facility] blood pressure, systolic 134 mm[Hg] Golden devonte Handley oxygen saturation, oximetry 98 % Dot Handley respiratory rate E&M 16 /min Yusuf gaxiola Handley pulse rate 77 /min Dot Noene n weight E&M 193 [lb_av] Dot [facility] blood pressure, cuff size large St rm [facility]ley height E&M 68 [in_i] Dot [facility] Body Mass Index (Ratio) 29.65 kg/m2 [facility] blood pressure, cuff size large Ke cesiliai David blood pressure, diastolic 72 mm[Hg] Ke rri David blood pressure, systolic 106 mm[Hg] Srikanth Hernandez oxygen saturation, oximetry 100 % Swapna Hernandez respiratory rate E&M 14 /min Swapna zimmerman pulse rate 66 /min Swapna littleer weight E&M 195 [lb_av] Swapna littleer height E&M 68 [in_i] Swapna jeffers ALLERGIES No Known Drug Allergies HISTORY OF MEDICATION USE Medication Status Instructions Dates Provider Indications Com ments albuterol sulfate 90 mcg/actuation HFA aerosol inhaler active 1 puff three times a day as needed 8 Dustin Chaudhry MD Shortness of breath (SOB) Linzess 145 mcg capsule active TAKE ONE CAPSULE BY MOUTH EVERY DAY with a meal Swapna Hernandez amlodipine 10 mg tablet active Swapna Hernandez SOCIAL HISTORY Date Observation Value Provider number of years as a smoker 25 a Darrel jasielterry smoking history, tot al pack/day 23 cigs a day Darrel Ni cigarette use yes Darrel Ni smoking status Former smoker Darrel Maher i number of years as a smoker 25 a Darrel Ni smoking history, tot al pack/day 23 cigs a day Darrel Ni cigarette use yes Darrel Ni smoking status Former smoker Darrel Maher i social history E&M S moking History: Josefa mobley is a former smoker. Darrel Ni social history reviewed E&M revi ewed - no changes required Darrel Ni number of years as a smoker 25 a Dot Melendez smoking history, tot al pack/day 23 cigs a day Dot Melendez cigarette use yes Dot Carter an smoking status Former smoker Dot lakhani number of years as a smoker 25 a Swapna David smoking history, tot al pack/day 23 cigs a day Swapna David cigarette use yes Swapna Jovanna martino smoking status Current every day smoker K erri David INSURANCE PROVIDERS Payer name Policy type / Coverage type Michael red green party ID [facility] [id number] ADVANCE DIRECTIVES Name Date DISCUSSED - NO DECISION MADE TREATMENT PLAN Date Name Performer [id number],C, B P today: 134/81 P rior BP: 106/72 (07/17/2022) Darrel Maherkrystyna [id number],C,d oes report of poor sleep quality and fatigue during the day time, will check home sleep study to rule out ASIM Darrelnarendra Maherkrystyna [id number],C,a ttributable to her lung process C hest x ray showed mild centreal peribronchial thickening suggestive of asthma or bronchitis. Darrel Ni [id number],C,she has stopp ed smoking Darrel Ni [id number],C,n ormal stress echo, chest pain is unlilkely to be from cardiac origin. I reviewed the importance of lifestyle and dietary modification with the patient. Darrel Ni [id number],S,P atient is advised to stop smoking. Will check CXR. Sugey Mei [employer] [id number],S,Will check CB C Sugey Mei [employer] [id number],B,C urrently well controlled on current regimen. H er updated medication list for this problem includes: Amlodipine 10 Mg Tablet (Amlodipine) Sugey Duquell [employer] [id number],N, Sugey Duque [employer] [id number],N,P atient with significant family history of premature CAD and personal history of chest pain and tobacco use. Will schedule for CMP, CBC, Lipids and thyroid studies as well as stress echo. Sugey Mei [employer] [id number],N,S T changes noted in I-III. H er updated medication list for this problem includes: Amlodipine 10 Mg Tablet (Amlodipine) Sugey Duquell [employer] Electrophysiology:Wi ll repeat study to assess if cpap is indicated Darrel Ni Electrophysiology Darrelnarendra Maher Electrophysiology:Th is visit has been a part of the consistent, comprehensive, and ongoing management of the chronic medical condition(s) listed above for the patient. BP today: 127/77 P rior BP: 122/70 (08/13/2023) Her updated medication list for this problem includes: Amlodipine 10 Mg Tablet (Amlodipine) Darrel Maher Electrophysiology:PF T from 2023 was normal. Her updated medication list for this problem includes: Amlodipine 10 Mg Tablet (Amlodipine) Darrel Maher Electrophysiology: n ormal stress echo 07/2022 Her updated medication list for this problem includes: Amlodipine 10 Mg Tablet (Amlodipine) Darrelnarendra Maheri Electrophysiology:Sh katheryn had quit but has resumed, we reviewed cessation Darrel jasiel Electrophysiology:reviewed impor tance of treating ASIM. Darrel daljit Electrophysiology: n ormal stress echo 07/2022 Darrel Gunnari Electrophysiology:Magdi vera was advised to stop smoking. Darrelnarendra Maher Electrophysiology: B P today: 122/70 P rior BP: 134/81 (08/14/2022) Her updated medication list for this problem includes: Amlodipine 10 Mg Tablet (Amlodipine) Darrelnarendra Maher Electrophysiology:st able, given her smoking hx I recommend PFT [facility] Electrophysiology: B P today: 134/81 P rior BP: 106/72 (07/17/2022) [facility] Electrophysiology:do es report of poor sleep quality and fatigue during the day time, will check home sleep study to rule out ASIM [facility] Electrophysiology:at tributable to her lung process C hest x ray showed mild centreal peribronchial thickening suggestive of asthma or bronchitis. [facility] Electrophysiology:she has stoppe d smoking [facility] Electrophysiology:no rmal stress echo, chest pain is unlilkely to be from cardiac origin. I reviewed the importance of lifestyle and dietary modification with the patient. Darrelnarendra Maher Electrophysiology:Magdi vera is advised to stop smoking. Will check CXR. Sugey Mei NP Electrophysiology:Will check CBC Sugey Mei NP Electrophysiology:Cu rrently well controlled on current regimen. H er updated medication list for this problem includes: Amlodipine 10 Mg Tablet (Amlodipine) uSgey Mei [employer] Electrophysiology Sugey Mei [employer] Electrophysiology:Magdi vera with significant family history of premature CAD and personal history of chest pain and tobacco use. Will schedule for CMP, CBC, Lipids and thyroid studies as well as stress echo. Sugey Mei [employer] Electrophysiology:ST changes noted in I-III. H er updated medication list for this problem includes: Amlodipine 10 Mg Tablet (Amlodipine) Sugey Mei [employer] Date Name Sleep Study Home DLCO - 06287 FRC - 08079 FVC - 74323 Sleep Study Titratio n Sleep Study Home Stress Echo DLCO - 28859 FRC - 70481 FVC - 74529 CBC (INCLUDES DIFF/P LT) TSH, free T4, total T3 BASIC METABOLIC PANE L W/EGFR LIPID PANEL HISTORY OF PROCEDURES Procedure Date Procedure Name Provider Procedure Notes S tatus Complex e/m visit ad d on Dustin Chaudhry MD completed FVC / MVV - 47735 Dustin Chaudhry MD completed FRC - 37168 Dustin Chaudhry MD com pleted SpO2 w/o 6min walk/titration Dustin Chaudhry MD completed DLCO - 13571 Dustin Chaudhry MD co mpleted EKG Dustin Chaudhry MD comp leted EKG Dustin Chaudhry MD comp leted
== END 2024-09-14 15:47 | disposition home or self-care (01) ==
PROVIDERS: Visit Provider Internal Medicine
DX: E04.1 Nontoxic single thyroid nodule (principal); E07.89 Other specified disorders of thyroid
CPT/HCPCS: 76536

== ENCOUNTER 2024-10-16 12:47 | Outpatient (CLI) | payer BC, SELFPAY ==
--- NOTE | ~2024-10-16 | US_ITS ---
EXAMINATION: US FNA w image guidance DATE: 10/16/2024 13:33 INDICATION: Nontoxic single thyroid nodule TECHNIQUE: A time-out was performed to verify the patient's name, date of , and procedure to be performed . The procedure and its benefits and risks were discussed with the patient. Risks specifically discus sed included bleeding and infection. The patient understood the risks and agreed to proceed. The neck was prepped and draped in the usual sterile manner. 3 mL 1% lidocaine was used for local anesthesia . 5 passes were made with a 25G needle into the lesion. Appropriate needle location was documented with continuous sonographic guidance. A sterile bandage was applied. There were no immediate compli cations. FINDINGS: Grayscale ultrasound images demonstrate biopsy needles advanced into a 1.7 cm solid hypoechoic left t hyroid nodule of concern. IMPRESSION: 1. Successful ultrasound-guided fine needle aspiration of the 1.7 cm solid left thyroid nodule of co ncern. Reviewed, dictated and finalized at location A. IMPRESSION: 1. Successful ultrasound-guided fine needle aspiration of the 1.7 cm solid lef t thyroid nodule of concern.
--- OUTSIDE RECORDS SUMMARY | 2024-10-16 13:08 | XMS_ITS | Data Portability ---
Author Organization [facility], Main Office Address [address] [place] [address] Assessment No assessment recorded. Plan of Treatment Reminders Order Date Submit Date Provider Last Modified By Organization Details Last Modified Time Details Appointments None recorded. Lab None recorded. Referral None recorded. Procedures colonoscopy procedure (PROC) 2022 023 [facility] (Pre-Screen), [address] [place], [address], 08:23:16 Surgeries None recorded. Imaging None recorded. Medication Orders Golytely 236 gram-22.74 gram-6.74 gram-5.86 gram oral solution 2022 023 [facility], [address], [place], [id number], 11:23:43 Patient TargetsNo targets recorded. Patient Instructions Encounter Date Encounter Id Patient Instructions Last Modified By Organization Details Last Modified Time 02/03/2023 [id number] GOLYTELY [email or web address] Not available 15:03:58 PT WITH HEMATOCHEZIA AND BM CHANGES. PT NEEDS A SCREENING COLON . R/O POLYP . RECOMMEND A COLONOSOPY . Risks benefits and complications were explained to the pt. ( BLEEDING PERFORATION , INFECTION , ). PT VERBALIZES UNDERSTANDING AND IS WILLING TO PROCEDE . [email or web address] Not available 02/03/2023 15:04:34 Reason for Referral None Reported. Results Created Date Observation Date Name Description Value Unit Range Abnormal Flag Note LastModifiedBy Organization Detail LastModifiedTime 09/14/20 23 02/24/2023 colon oscop y proce dure (PROC ) No observ ation record ed. [email or web address] [facility] (Pre-Screen) [address] [place], [address], 02/25/2023 08:23:16 Result Notes None recorded. Procedures Surgical History None recorded. Imaging Results Imaging Date Name Status LastModified by Organiz ation Details LastModified Time 02/24/2023 colonoscopy procedure (PROC) completed [email or web address] [facility] (Pre-Screen) [address] [place], [address], 02/25/2023 08:23:16 Procedure Notes None recorded. Medical [...] Updated DateTime 3 172.72 cm 28.7 kg/m2 99605.9 6 g 80 /min 98 % 98 % 132 mm[Hg] 84 mm[Hg] IZABELLA Benson - [facility] 14:36:02 Social History Question Answer Notes LastModified by Organizat ion Details LastModified Time Tobacco Smoking Status Current Every Day Smoker IZABELLA Benson, [place] [facility] 02/01/2023 09:53:41 What Is Your Level Of [...] SNOMED-CT Code Diagnosis ICD10 Code Diagnosis Note [id number] Rachell Jones MD [facility] General Surgery [address] [facility], [facility] [address] [place] [address] 02/03/2023 14:32:32 02/03/2023 15:10:35 Hematochezia [id number] K92.1 Health Concerns Section Related Observation LastModified by Organization Detai ls LastModified Time None Recorded Concern Status LastModified by Organization Details LastModified Time None Recorded Advance Directives Directive None Recorded Payers Encounter Date Sequence Insurance Name Policy Number Policy Huang Covered Member ID Huang Member ID Guarantor Name 02/03/2023 1 [employer]: ([place]) [id number] Morenita [id number] Morenita Larkin Notes Date Note Type [...] WT LOSS / N/V. Rachell Jones MD [address] [place] [address], [facility] [address], [place], [address], [facility] 02/03/2023 15:05:09 OBGyn Episode No OBEpisode recorded.
--- OUTSIDE RECORDS SUMMARY | 2024-10-16 13:08 | XMS_ITS | Encounter Summary ---
Author Organization [facility] Address [facility] [place] [address] Care Team Providers Care Toy Maker Name Role Phone Abby Benitez MD Primary Care Provider [phone] Encounter Details Date Type Department Care Team (Late st Contact Info) Description 09/28/2024 2359 Media Message Enc [facility] - [address], [address] [place] [address] [place], [facility] Provider Appointment Today Social History Tobacco Use Types Packs/Day Years Used Date Smoking Tobacco: Every Day Cigarettes Smokeless Tobacco: Never PHQ-2 Answer Date Recorded Patient Health Questionnaire-2 Score 0 08/03/2024 Comments Unknown Sex and Gender Information Value Date Recorded Sex Assigned at Not on file Legal Sex Female 1:00 PM CDT Gender Identity Not on file Sexual Orientation Not on file documented as of this encounter Plan of Treatment Not on file documented as of this encounter Visit Diagnoses Not on filedocumented in this encounter Care Teams Toy Maker Relationship Specialty [place] [address] [place] [address] PCP - General INTERNAL MEDICINE 02/04/24 documented as of this encounter
--- OUTSIDE RECORDS SUMMARY | 2024-10-16 13:09 | XMS_ITS | Data Portability ---
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 Plan of Treatment Reminders Order Date Submit Date Provider Last Modified By Organization Details Last Modified Time Details Appointments ANY 2024 09:15A M Abby Montez MD Not available Not available Not available ANY 2024 11:00A M aHnane Peacock MD Not available Not available Not available Lab PPD (purifie d protein derivati ve), skin test 2023 024 BUTLER In-Office Order, Internal Use Only DO Not Attach Compendium DO Not Attach Compendium, Do Not Delete/merge, [id number] 01/26/2024 19:01:25 PPD (purifie d protein derivati ve), skin test 2023 024 JOHN In-Office Order, Internal Use Only DO Not Attach Compendium DO Not Attach Compendium, Do Not Delete/merge, [id number] 01/19/2024 19:14:41 vitamin D, 25-hydro xy, total, serum 2023 024 BUTL[facility], [address], [address] [address], [place], [address], 11/16/2023 06:17:49 Referral None recorded . Procedures None recorded . Surgeries None recorded . Imaging XR, shoulder , 1 view 2023 024 [facility] ([facility]), [address] [place], [address], 02/21/2024 16:13:52 Medication Orders ergocalc iferol (vitamin D2) 1,250 mcg (50,000 unit) capsule 2024 025 [facility][id number], [address], [place], [place], [id number], 06/22/2024 10:40:09 ibuprofe n 600 mg tablet 2024 025 [facility] #54181, [address], [place], [place], [id number], 06/22/2024 10:40:11 amlodipi ne 10 mg tablet 2023 024 [facility]83168, [address], [id number], 02/17/2024 17:43:39 losartan 25 mg tablet 2023 024 [facility] #80403, [address], [place], [place], [id number], 02/17/2024 17:41:43 Tubersol 5 tub. unit/0.1 mL intrader mal injectio n solution 2023 024 [email or web address] Not available 01/24/2024 20:24:56 Tubersol 5 tub. unit/0.1 mL intrader mal injectio n solution 2023 024 [email or web address] Not available 01/17/2024 16:53:03 ergocalc iferol (vitamin D2) 1,250 mcg (50,000 unit) capsule 2023 024 [facility], [address] [place], [place], [id number], 10/25/2023 18:04:38 Patient Targets Encounter Date Encounter Id Patient Goals Patient Target Last Modified By Organization Details Last Modified Time Physically cleared for normal employment activities. TB skin test administered and is pending. Not available 01/17/2024 16:46:05 Patient Instructions Encounter Date Encounter Id Patient Instructions Last Modified By Organization Details Last Modified Time 10/25/2023 [id number] thyroid nodules: care instructions [email or web address] Not available 10/25/2023 17:36:56 A healthy lifestyle: care instructions Not available 10/25/2023 17:35:10 01/17/2024 [id number] A healthy lifestyle: care instructions Not available 01/17/2024 16:46:18 Quitting Tobacco : Care Instructions [email or web address] Not available 01/17/2024 16:46:18 tuberculin skin test: care instructions [email or web address] Not available 01/17/2024 16:46:18 01/24/2024 [id number] A healthy lifestyle: care instructions [email or web address] Not available 01/24/2024 17:36:12 02/17/2024 [id number] learning about high blood pressure [email or web address] Not available 02/17/2024 17:39:41 06/22/2024 [id number] thyroid nodules: care instructions [email or web address] Not available 06/22/2024 10:39:53 learning about high blood pressure [email or web address] Not available 06/22/2024 10:39:53 Reason for Referral None Reported. Results Created Date Observation Date Name Description Value Unit Range Abnormal Flag Note LastModifiedBy Organization Detail LastModifiedTime 11/15/1911/16/2023 THYRO XINE (T4) FREE, DIREC T T4,free(dire ct) 1.03 NG/dL 0.82-1 .77 Not Available [facility] ([facility]) [address] [place], [address], 11/16/2023 06:17:47 11/15/1911/16/2023 TRIIO DOTHY MELISSA E (T3), FREE triiodothyro nine (T3), free 2.7 pg/mL 2.0-4. 4 Not Available [facility] ([facility]) [address] [place], [address], 11/16/2023 06:17:47 11/15/19 24 11/16/2023 VITAM IN [...] Endoc rine Socie ty went on to formerly [facility] er defin e vitam in D insuf ficie ncy as a level betwe en 21 and 29 ng/mL (2). 1. IOM (Inst itute of Medic ine). 2010. Dieta ry refer ence intak es for calci um and D. Horace lagunas [place]: The [facility] Press . 2. Larry whitley MF, Arias cueva [place], Zachariah off-F errar i LANDRY, et al. Evalu ation , treat ment, and preve ntion of vitam in D defic iency : an Endoc rine Socie ty clini tiffany pract ice guide line. JCEM. 2010; 96(7) :1911 -30. Not Available [facility] ([facility]) [address] [facility], [place], [address], 11/16/2023 06:17:49 01/19/20 24 01/19/2024 PPD (lindsey fied prote in deriv ative ), skin test Result Negati ve Not Available In-Office Order Internal Use Only DO Not Attach Compendium DO Not Attach Compendium, Do Not Delete/merge, [id number] 01/17/2024 16:45:09 01/26/2001/26/2024 PPD (lindsey fied prote in deriv ative ), skin test Result Negati ve Not Available In-Office Order Internal Use Only DO Not Attach Compendium DO Not Attach Compendium, Do Not Delete/merge, [id number] 01/24/2024 17:36:04 04/22/10/04/2023 MRI, cervi tiffany spine , w/o contr ast No observ ation record ed. [address] [place], [address], 10/17/2023 21:51:39 10/30/19 24 10/30/2023 XR, chest No observ ation record ed. [address] [place], [address], 10/31/2023 16:56:07 02/21/20 24 02/21/2024 XR, shoul ángela, 1 view No observ ation record ed. [facility] [address] [place], [address], 02/24/2024 14:40:39 04/12/20 24 04/12/2024 US, james tray , limit ed No observ ation record ed. [facility] [address] [place], [address], 04/21/2024 14:04:30 04/12/20 24 04/12/2024 US, ray wood No observ ation record ed. [facility] [address] [place], [address], 04/21/2024 14:04:31 09/15/19 25 09/14/2024 US, thyro id No observ ation record ed. [address], [place], [address], 09/14/2024 23:45:01 Result Notes None recorded. 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 2016 Not Available [facility] 3 18:57:18 Difficult y swallowin g pills 82831656783 01 Active 2018 Not Available [facility] 3 18:57:19 Edema of lower leg 108845355 Active 2018 Not Available [facility] 3 18:57:18 Infection by Trichomon as 82306445 Active 2019 Not Available [facility] 3 18:57:19 Tuberculo sis screening Active 2020 Not Available [facility] 3 18:57:18 Upper abdominal pain 49736365 Active 2020 RUQ/LUQ Not Available [facility] 3 18:57:19 Essential hypertens ion 78119766 Active 2021 Not Available [facility] 3 18:57:19 Mammograp hy abnormal 186735050 Active 2021 Not Available [facility] 3 18:57:18 Anemia 083536661 Active 2021 Not Available [facility] 3 18:57:18 Chest pain 88033200 Active 2021 Not Available [facility] 3 18:57:18 Hyperglyc emia 60412268 Active 2021 Not Available [facility] 3 18:57:19 Pain of right knee joint 36548234906 4100 Active 2022 Not Available [facility] 3 18:57:18 Atypical chest pain 969181099 Active 2022 Not Available [facility] 3 18:57:18 Carotid bruit present 387852979 Active 2022 Left Not Available [facility] 3 18:57:18 Hematoche mani 468929729 Active 2022 Not Available [facility] 3 18:57:18 Family history of polyp of colon 917109869 Active 2022 Not Available [facility] 3 18:57:18 Vitamin D deficienc y 66167402 Active 2022 Not Available [facility] 3 18:57:18 Pain of left shoulder joint 64393655795 211857 Active 2023 Abby Montez MD Attn: Accounting ,[address] [facility], [place], [address] , [place] [facility] 4 17:30:24 Thyroid stimulati ng hormone level below reference range 513933336 Active 2023 Abby Montez MD Attn: Accounting ,[address] [facility], [place], [address] , [place] [facility] 4 10:54:39 Weakness of left upper limb Active 2023 Abby Montez MD Attn: Accounting ,[address] [place], [address] , [place] [facility] 4 16:44:57 Thyroid nodule 695127608 Active 2023 left Abby Montez MD Attn: Accounting ,[address] [place], [address] , [place] [facility] 4 16:48:45 Disorder of cervical spine 466872101 Active 2023 Abby Montez MD Attn: Accounting ,[address] [place], [address] , [place] [facility] 4 17:26:54 Bacterial vaginosis 887527663 Active Not Available [facility] 3 18:57:18 Hand pain 15309909 Active Not Available [facility] 3 18:57:18 Carpal tunnel syndrome 10961529 Active Not Available [facility] 3 18:57:19 Urinary tract infectiou s disease 99894497 Active 2015 [facility] Not Available [facility] 3 18:57:19 History of bronchiti s 387116194 Active 2015 used inhaler last 12\04\201 6 Not Available [facility] 3 18:57:18 Problem Notes None recorded. Procedures Surgical History Date Name Laterality Status Provider Name and Address Organization Details Recorded Time 12/29/2021 Date of Last Pap Smear completed Claudia Arcos [place] [facility] 08/05/2023 11:51:02 Imaging Results Imaging Date Name Status LastModified by [facility] Details LastModified Time 10/04/2023 MRI, cervical spine, w/o contrast completed [address] [place], [address], 10/17/2023 21:51:39 10/30/2023 XR, chest completed [address] [place], [address], 10/31/2023 16:56:07 02/21/2024 XR, shoulder, 1 view completed [facility] [address] [place], [address], 02/24/2024 14:40:39 04/12/2024 US, breast, unilateral, limited completed [facility] [address] [place], [address], 04/21/2024 14:04:30 04/12/2024 US, breast, unilateral completed [facility] [address] [place], [address], 04/21/2024 14:04:31 09/14/2024 US, thyroid completed [address], [place], [address], 09/14/2024 23:45:01 Procedure Notes None recorded. Medical Equipment None [...] Updated DateTime 4 172.72 cm 29.2 kg/m2 74491.7 4 g 86 /min 97 % 97 % 142 mm[Hg] 88 mm[Hg] Teetee Padilla MA [facility] 4 17:15:48 Date Recorded Body height Body mass index (BMI) Body weight Oxygen saturation Oxygen saturation in Arterial blood by Pulse oximetry Heart rate Respiratory rate Body temperature Systolic blood pressure Diastolic blood pressure Provider Name and Address Organization Details Last Updated DateTime 4 172.72 cm 29.2 kg/m2 80518.7 4 g 99 % 99 % 74 /min 16 /min 98.1 [degF] 148 mm[Hg] 89 mm[Hg] Liam Talbert MA [facility] 4 16:37:36 Date Recorded Body height Body mass index (BMI) Body weight Oxygen saturation Oxygen saturation in Arterial blood by Pulse oximetry Heart rate Body temperature Systolic blood pressure Diastolic blood pressure Provider Name and Address Organization Details Last Updated DateTime 4 172.72 cm 29.6 kg/m2 92104.0 7 g 100 % 100 % 73 /min 98.6 [degF] 127 mm[Hg] 81 mm[Hg] Nasima Milton MA [facility] 4 17:28:27 Date Recorded Body height Body mass index (BMI) Body weight Heart rate Oxygen saturation Oxygen saturation in Arterial blood by Pulse oximetry Systolic blood pressure Diastolic blood pressure Provider Name and Address Organization Details Last Updated DateTime 4 172.72 cm 29.2 kg/m2 27278.7 4 g 81 /min 98 % 98 % 130 mm[Hg] 80 mm[Hg] Lexus Lo MA [facility] 4 16:48:09 Date Recorded Body height Body mass index (BMI) Body weight Oxygen saturation Oxygen saturation in Arterial blood by Pulse oximetry Heart rate Systolic blood pressure Diastolic blood pressure Provider Name and Address Organization Details Last Updated DateTime 5 172.72 cm 30.4 kg/m2 36587.4 7 g 98 % 98 % 71 /min 125 mm[Hg] 77 mm[Hg] Artur Cruz MA [facility] 5 10:17:59 Social History Question Answer Notes LastModified by Organizat ion Details LastModified Time Tobacco Smoking Status Current Some Day Smoker Beatriz King MA null, [facility] 09/07/2023 16:17:25 Do You Have An Advance Directive? No Information not available 12/29/2021 What Is Your Level Of Alcohol Consumption? None [email or web address] Information not available 05/16/2015 Is Blood Transfusion Acceptable In An Emergency? No [email or web address] Information not available 05/16/2015 What Is Your Level Of Caffeine Consumption? Heavy [email or web address] Information not available 05/16/2015 How Much Tobacco Do You Chew? None [email or web address] Information not available 05/16/2015 In The 14 [...] available 12/29/2021 Are You Currently Employed? Yes [email or web address] Information not available 05/16/2015 What Type Of Diet Are You Following? REGULAR [email or web address] Information not available 05/16/2015 Which Illicit Or Recreational Drugs Have You Used? 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 Alone [email or web address] Information not available 05/16/2015 What Was The Date Of Your Most Recent Tobacco Screening? 06/22/2024 Information not available 06/22/2024 How Many Children Do You Have? 1 [email or web address] Information not available 05/16/2015 What Is Your Current Pack Years? 10packyeelle [email or web address] Information not available 01/24/2024 Performs Monthly Self-breast Exam? Yes [email or web address] Information no t available 05/16/2015 Do You Use Protection During Sex? Usually 80% Information not available 05/16/2015 What Is Your Relationship Status? Single [email or web address] Information not available 05/16/2015 Seat Belts Used Routinely Yes [email or web address] Information not available 05/16/2015 Are You Sexually Active? Yes [email or web address] Information not available 05/16/2015 Do You Have Smoke And Carbon Monoxide Detectors In Your Home? Yes Information not available 12/29/2021 At What Age Did You Start Smoking Tobacco? 16 [email or web address] Information not available 05/16/2015 Are You Passively Exposed To Smoke? Yes Information no t available 12/29/2021 How Much Tobacco Do You Smoke? 1 PPW About 1 Daily [email or web address] Information not available 07/27/2023 General Stress Level Low [email or web address] Information not available 05/16/2015 Do You Feel Stressed (tense, Restless, Nervous, Or Anxious, Or Unable To Sleep At Night)? [id number] [email or web address] Information not available 01/24/2024 Do You Use Any Illicit Or Recreational Drugs? No Information not available 12/29/2021 Do You Use Sunscreen Routinely? No [email or web address] Information not available 05/16/2015 Has Tobacco Cessation Counseling Been Provided? Yes Information not available 12/29/2021 On What Date Was Tobacco Cessation Counseling Provided? 06/22/2024 Information not available 06/22/2024 How Many Years Have You Smoked Tobacco? 18 [email or web address] Information not available 05/16/2015 Do You Or Have You Ever Used Any Other Forms Of Tobacco Or Nicotine? No Information not available 12/29/2021 Sex: Female Functional Status Question Answer Note LastModified by Organization D etails LastModified Time What is your exercise level? Moderate [email or web address] Information not available 05/16/2015 Mental Status None recorded. Family History Relationship Description Onset Age of this Age Resolved Age Notes LastModified by Organization Details LastModified Time Mother Diabetes mellitus [email or web address] rs Not available 11/26/2015 11:04:11 Sister Diabetes mellitus [email or web address] rs Not available 11/26/2015 11:04:11 Maternal Grandmother Hypertensive disorder [email or web address] rs Not available 11/26/2015 11:04:11 Maternal Grandmother Diabetes mellitus [email or web address] rs Not available 11/26/2015 11:04:11 Medical History [...] high-dose, trivalent, PF 05/16/2015 completed Not Available [facility] 2022 18:57:19 Past Encounters Encounter ID Performer Location Encounter Start Date Encounter Closed Date Diagnosis/Indication Diagnosis SNOMED-CT Code Diagnosis ICD10 Code Diagnosis Note [id number] Marita Carrillo [facility] ([facility]) [address] [place] [address] 05/16/2015 10:12:02 05/16/2015 17:34:29 Gynecologic examination 74547101 Z01.411 Bacterial vaginosis 4197 73450 N76.0 High risk sexual behavior 713569694 Z72.51 desires no BCM c\o tender breast [id number] Twan Perdue MD [facility] (Adult/Fa m Med) [address] [place], [place] [address] 09/24/2015 11:03:32 09/25/2015 11:05:04 Hand pain 98948516 M79.641 Carpal karl gissel syndrome 77109521 G56.01 [id number] Twan Perdue MD [facility] (Adult/Fa m Med) [address] [place] [id number] 9 10/08/2015 10:32:20 10/08/2015 12:48:12 Carpal tunnel syndrome 34856422 G56.01 Hand pain 26579533 M79.6 41 [id number] Marita Carrillo [facility] ([facility]) [address] [place] [address] 22957[address]898 9 11/26/2015 10:44:57 11/26/2015 16:21:44 Urinary tract infectious disease 68211233 N39.0 f\u today r\t UTI @ [facility] on took all meds and denies cont. S & S urine C & S to lab today. denies unprotecte d coitus with current sex partner of X 6 years; denies hx. of STI's. High risk sexual behavior 608988373 Z72.51 admits to unprotecte d coitus with new sex partner of X 90 days. [id number] Marita Carrillo [facility] ([facility]) [address] [place] [phone] 9 05/18/2016 10:25:36 07/29/2016 11:51:58 Gynecologic examination 18376480 Z01.411 pap was WNL; c\o constipati on Chronic constipation 236 490518 K59.00 discussed water intake 5-6 rafy jars daily, but still has constipati on Exposure t o sexually transmissible disorder 059067889 Z20.2 with current sex partner X 18 mo. gives no previous hx. of STI's until today will r\o other STI's also request & received Blood STI screening also Trichomona l vulvovaginitis 49431249 A59.01 on wet mount today [id number] Marita Carrillo [facility] ([facility]) [address] [place] [address] 36093-235 9 06/09/2016 10:26:30 06/17/2016 11:36:45 Exposure to sexually transmissible disorder 602171140 Z20.2 with current sex partner X 18 mo. gives no previous hx. of STI's until will r\o other STI's also request & received Blood STI screening also Herpes sim plex type 1 infection 858433568 B00.9 Herpes sim plex type 2 infection 558328437 B00.9 Leukocytes in urine 2757 69380 R82.71 [id number] Francia Almanzar, [facility] (Adult/Fa m Med) [address] [place] [address] 46[address] 9 05/03/2017 10:21:49 05/19/2017 17:03:33 Screening for disorder 618407482 Z13.9 Venereal d isease screening 099325376 Z11.3 [id number] Twan Perdue MD [facility] (Adult/Fa m Med) [address] [place] [address] 40277-712 9 05/17/2017 10:39:26 05/26/2017 10:46:42 Increased blood pressure 48325950 R03.0 High risk sexual behavior 143261584 Z72.51 Screening for disorder 278595838 Z13.9 [id number] Maxi Fernando DO [facility] ([facility]) [address] [place] [address] 89139[address]344 9 06/01/2017 11:48:54 06/02/2017 11:09:38 Gynecologic examination 54727829 Z01.411 History of sexually transmitted disease 251099128 Z87.42 dx. per Darren Almanzar treatment recieved today. Trichomona l vulvovaginitis 69907905 A59.01 Chronic constipation 236 896109 K59.09 Herpes sim plex type 2 infection 853255208 B00.9 [id number] Abby Montez MD [facility] (Adult Med) [address] [place] [address] 07/07/2018 10:46:27 07/08/2018 12:47:31 Chronic constipation 869812234 K59.09 Elevated blood-pressure reading without diagnosis of hypertension 619496571 R03.0 Family his tory of diabetes mellitus 844438173 Z83.3 [id number] Marita Carrillo [facility] ([facility]) [address] [place] [address] 80692-266 9 07/27/2018 11:19:40 07/29/2018 10:12:01 Gynecologic examination 33649477 Z01.695 [id number] [facility] [address] [place] [id number] 9 08/18/2018 12:01:26 08/18/2018 14:57:49 Venereal disease screening 080052889 Z11.3 f\u r\t hx. of + trichomona s on \19. [id number] [facility] [address] [place] [address] [place] [address] 09/06/2018 10:25:56 09/08/2018 15:30:45 Exposure to genital trichomoniasis 668216315 Z20.2 test results are still + for [...] applesauce to swallow. Increased frequency of urination 378711634 R35.0 Mat. G- MOM & mom r\t diabetes HGB A 1 c negative recently on . Venereal d isease screening 406747869 Z11.3 f\u r\t hx. of + trichomona s on ; second f\u remains + on emesis of meds problem swallowing pills. [id number] MD [facility] (Adult Med) [address] [place] [address] 06/12/2019 16:30:13 06/12/2019 17:43:04 Edema of lower leg 660744846 R60.0 History of bronchitis [id number] [facility] ([facility]) [address] [place] [address] 01/03/2020 14:12:27 01/23/2020 21:29:19 Gynecologic examination 79730710 Z01.411 last pap was abnormal r\t + trichomona s otherwise negative for malignancy & HR\MONTSERRAT was also negative. Leukocytes in urine 2757 30937 R82.71 trace with protien & nitrates c\o urinary frequency too. Dysuria-fr equency syndrome 4873522 R35.0 [id number] MD [facility] (Adult Med) [address] [place] [phone] 07/23/2020 08:08:15 07/24/2020 11:49:25 Tuberculosis screening 889028846 Z11.1 Family his tory of diabetes mellitus 195152845 Z83.3 Elevated blood-pressure reading without diagnosis of hypertension 551441957 R03.0 BP check Chronic constipation 236 609366 K59.09 [id number] MD [facility] (Adult Med) [address] [place] [address] 05/06/2021 11:43:45 05/07/2021 10:28:35 Upper abdominal pain 48211572 R10.10 [id number] JIM SCOTT [facility] (Adult Med) [address] [place] [address] 12/29/2021 08:28:42 12/30/2021 09:20:33 Gynecologic examination 40401442 Z01.419 41 year old female presents today to establish OBGYN care and for WWE. Used to follow with Marita Mcguire for OBGYN care. Follows with Dr. Montez for primary care.LMP 12/18/2021La st pap smear 08/2018, normal, no abnormal papsNot on control- pap smear completed, will call with results Essential hypertension 42502606 I10 Hx of elevated blood pressure in [...] for BP check Venereal d isease screening 537720199 Z11.3 - STD check completed via [email or web address] during visit today for screening purposes Screening mammography 24 852267 Z12.31 Provided patient with mammogram order, she understand s she needs to call and schedule appointmen t Chronic constipation 236 649815 K59.09 Requesting refill on Linzess- will provide short term supply, will need to get this medication from PCP in the future [id number] MD [facility] (Adult Med) [address] [place] [address] 22805[address] 0 01/12/2022 11:28:13 01/13/2022 11:57:13 Essential hypertension 34874898 I10 Continue amlodipine [id number] JIM SCOTT (Adult Med) [address] [place] [address] 02/12/2022 09:05:47 02/17/2022 09:55:01 Infection by Trichomonas 96846968 A59.9 Pt tested positive for trich 12/29/21. Pt given rx for metronidaz ole and reports compliance with medication . States partner was treated as well.Idalmis lubin any urinary/va ginal sx today-Pt left urine sample today; will contact pt with results Mammography abnormal 168 832953 R92.8 Mammogram 01/15/2022 showed abnormal findings on R breast but likely benign, rec. repeat again in 6 months- rec. for patient to reach out 07/2022, will get that ordered for her at that time [id number] MD Benji Vera (Adult Med) [address] [place] [address] 02624-753 0 05/20/2022 17:13:45 05/21/2022 15:37:48 Anemia 631500895 D64.9 Trial iron Essential hypertension 07398705 I10 Stable. Continue amlodipine Family his tory of diabetes mellitus 650093274 Z83.3 Chest pain 24018346 R07. 9 Hyperglycemia 33837455 R 73.9 Chronic constipation 236 842042 K59.09 [id number] MD Benji Vera (Adult Med) [address] [place] [address] 44810-496 0 10/15/2022 16:52:57 10/19/2022 11:59:39 Obesity 027917576 E66.9 Pain of ri ght knee joint 7429979336 94237 M25.561 Essential hypertension 04460951 I10 Stable. Continue amlodipine Atypical chest pain 1025 16790 R07.89 No evidence ischemia Carotid bruit present 27 8253780 R09.89 [id number] MD Benji Vera (Adult Med) [address] [place] [address] 78479-118 0 12/16/2022 16:26:45 12/17/2022 13:04:35 Obesity 870971962 E66.9 Essential hypertension 04166238 I10 Stable. Continue amlodipine Anemia 227668334 D64.9 Trial iron Hyperglycemia 56426096 R 73.9 Pain of ri ght knee joint 7271519372 13342 M25.561 Hematochezia 045288180 K 92.1 Family his tory of polyp of colon 026515670 Z83.71 [id number] JIM SCOTT (Adult Med) [address] [place] [address] 99867-219 0 01/19/2023 12:22:08 01/20/2023 14:44:39 Mammography abnormal 427051919 R92.8 Mammogram 01/15/2022 showed abnormal findings on R breast but likely benign, rec. repeat again in 6 months but patient was lost to f/u until nowNo breast complaints today, requesting new referral- mammogram ordered today, call to schedule Overweight 361802129 E66 .3 Advised decreased portion sizes, good food choices, limited eating out or fast food and eliminate soda and juice from diet. Advised physical activity daily and offered encouragem ent to continue with positive changes made so far. Depression screening 171 522776 Z13.31 PHQ 2/9 was negative in office today (0 out of 27) [id number] Abby Montez MD [facility] (Adult Med) [address] [place] [address] 76071-875 0 04/19/2023 17:00:38 04/29/2023 12:27:44 Anemia 055289265 D64.9 Referral hematology . Oral B12 Vitamin D deficiency 347 52437 E55.9 Essential hypertension 28657299 I10 Stable. Continue amlodipine Family his tory of diabetes mellitus 117830858 Z83.3 [id number] JIM SCOTT (Adult Med) [address] [place] [address] 47684-219 0 05/04/2023 15:08:10 05/05/2023 12:13:39 Overweight 358941535 E66.3 Advised decreased portion sizes, good food choices, limited eating out or fast food and eliminate soda and juice from diet. Advised physical activity daily and offered encouragem ent to continue with positive changes made so far. Mass of right breast 561 9759916 4398443 N63.10 History of abnormal mammogram presents today [...] patient- ordered repeat diagnostic mammogram for 08/2023 [id number] MD Benji Vera (Adult Med) [address] [place] [address] [phone] 0 07/27/2023 16:21:15 07/29/2023 08:08:15 Overweight 794176697 E66.3 Essential hypertension 35815979 I10 Elevated Continue amlodipine . Add losartan Hyperglycemia 43405087 R 73.9 Carpal karl gissel syndrome 59561327 G56.00 Anemia 369065931 D64.9 Referral hematology . Oral B12 Pain of le ft shoulder joint 8807575997 1770648 M25.407 [id number] [facility] [address] [place] [address] 28396-844 0 08/05/2023 11:30:30 08/09/2023 17:25:58 Trying to conceive 984969627 Z31.9 Abnormal u terine bleeding 3642285473 9100 N93.9 Menstrual interval less than thirty days. Has been that way for much of her menstrual time. Recently had an abnormal TSH. Thyroid abnormalit ies could contribute to abnormal bleeding patterns. Will repeat TSH. Essential hypertension 70898967 I10 Blood pressure controlled . Continue medication and follow up with PMD. Mammography abnormal 168 421276 R92.8 Follow up mammogram and ultrasound ordered for August. Patient will call to schedule. Nicotine user 617275780 Z72.0 Recommende d patient quit. [id number] Alli Larson MD [facility] [address] [facility] [address] [place] [address] 08/23/2023 15:30:07 08/24/2023 09:15:26 Trying to conceive 027822200 Z31.9 --Pt informed that she should use ovulation detection kits and have sex during ovulation- -Obtain sperm analysis of --S tart vitamins and folic acid Overweight 146129145 E66 .3 [id number] MD Benji Vera (Adult Med) [address] [place] [address] 76875-595 0 09/07/2023 16:05:37 09/08/2023 11:10:14 Weakness of left upper limb 9394589547 33184 M62.81 Thyroid nodule 851291915 E04.1 Essential hypertension 66173028 I10 Recent BP at cardiology [place] . Will continue current medical regimen [id number] MD Benji Vera (Adult Med) [address] [place] [address] 66263-309 0 10/25/2023 16:48:49 10/27/2023 14:28:53 Overweight 849260368 E66.3 Vitamin D deficiency 347 54930 E55.9 Thyroid nodule 797151668 E04.1 F/U endocrinol ogy as scheduled Weakness o f left upper limb 4970806326 83536 M62.81 F/U NS as scheduled [id number] NADINE BECKHAM MD [facility] [address] [place] [address] 01/17/2024 16:18:23 01/19/2024 11:58:50 Overweight 633356583 E66.3 Smoker 38776183 F17.200 Adult [facility] th examination 532248167 Z00.00 Tuberculos is screening 522212841 Z11.1 [id number] NADINE BECKHAM MD [facility] [address] [place] [address] 01/24/2024 17:12:48 01/25/2024 08:44:26 Overweight 797262398 E66.3 Tuberculos is screening 273455976 Z11.1 [id number] MD Benji Vera (Adult Med) [address] [place] [address] 99103-689 0 02/17/2024 16:29:41 02/17/2024 17:43:59 Disorder of cervical spine 739673635 M53.81 F/U NS [facility] Essential hypertension 87304084 I10 Recent BP at cardiology [place] . Will continue current medical regimen Family his tory of diabetes mellitus 675939127 Z83.3 Pain of le ft shoulder joint 5122091711 1062998 M25.123 [id number] Abby Montez MD [facility] (Adult Med) [address] [place] [address] 16875-237 0 06/22/2024 09:57:19 06/23/2024 15:38:35 Vitamin D deficiency 57160850 E55.9 Disorder o f cervical spine 252796349 M53.81 F/U NS [facility] Essential hypertension 30156275 I10 Recent BP at cardiology [place] . Will continue current medical regimen Family his tory of polyp of colon 599674199 Z83.719 Pain of ri ght knee joint 8360242264 30379 M25.561 Weakness o f left upper limb 6038715852 92277 M62.81 F/U NS as scheduled Thyroid nodule 758371634 E04.1 F/U endocrinol ogy as scheduled Health Concerns Section Related Observation LastModified by Organization Detai ls LastModified Time None Recorded Concern Status LastModified by Organization Details LastModified Time None Recorded Advance Directives Directive N: Payers Encounter Date Sequence Insurance Name Policy Number Policy Huang Covered Member ID Huang Member ID Guarantor Name 10/25/2023 2 [place] Morenita Larkin [id number] [facility] 01/17/2024 1 [facility] (MEDICAID HMO) [id number] Morenita Larkin [id number] [facility] 01/24/2024 1 [facility] (MEDICAID HMO) [id number] 0003 Morenita Larkin [id number] [facility] 02/17/2024 1 [facility] (MEDICAID HMO) [id number] 0003 Morenita Larkin [id number] [facility] 06/22/2024 1 [facility] (MEDICAID HMO) [id number] 0003 Morenita Larkin [id number] [facility] Notes Date Note Type Note Provider Name and Address Organization Details Recorded Time 10/25/2023 text/html Here for routine f/u. No new complaints. 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 BOWEN Mujica Attn: [address] [facility], [place], [address], [place] [facility] 01/17/2024 16:46:36 01/24/2024 text/html Pt is a 43 yo fe male who request tb screening; this will be the second ppd in the series; 1st test negative MADHU SANDS NP Attn: Accounting[address] [facility], [place], [address], [place] [facility] 01/24/2024 17:40:32 02/17/2024 text/html Has not seen NS Abby Montez MD Attn: [address]ing[address] [facility], [place], [address], [place] [facility] 02/17/2024 17:40:45 06/22/2024 text/html Here for routine f/u. No new complaints. Scheduled to see NS and endocrinology within the next month. Needs refil on ibuprofen for painful knees Abby Montez MD Attn: Accounting,[address] [facility], [place], [address], [place] [facility] 06/22/2024 10:40:19 OBGyn Episode Ob Episode Information Episode Created Date Number of Fetuses Patient Bloodtype Patient rh Status Prepregnancy Weight lbs Domestic Partner Domestic Partner Phone Father Name Janitor Status 12/30/19 22 1 CLOSED Fetus Data First Name Last Name Admitted to NICU Weight (g) Sex Living Outcome Pediatric Complications Fetus ID Race Codes Race Delivery Type M Full Term [id number] Mervin Calculation Initial Mervin Date Initial Exam [...]
--- OUTSIDE RECORDS SUMMARY | 2024-10-16 13:09 | XMS_ITS | CONTINUITY OF CARE DOCUMENT ---
Author Name shay, shay Address Unknown Organization [facility] Address [address] [place] [address] Phone [phone] Care Team Providers Care Flour Broker Name Role Phone Dustin Chaudhry MD Unavailable [phone] MARIA TERESA MONTEZ MD Unavailable MARIA TERESA MONTEZ MD Unavailable [phone] PROBLEMS Condition Status Date Provider Notes Shortness of breath (SOB) active Dustin karimi MD Anemia active Darrel Ni Essential hypertension active Darrel Ni Sleep apnea, obstructive - n ot using cpap active Darrel Ni Snoring completed - Darrel Ni Tobacco abuse active Sugey Mei NP Chest pain-type to be determined active Sugey Mei NP Family Hx heart disease active Sugey zapien OPHTHALMOLOGY SURGICAL TECHNICIAN Abnormal electrocardiogram active Sugey escoto OPHTHALMOLOGY SURGICAL TECHNICIAN Chest pain completed - Darrel Ni ENCOUNTERS Date Type Provider Location Encounter Diag nosis - In-person encounter Office Visit Dustin Chaudhry MD [place] [facility] - In-person encounter Office Visit Dustin Chaudhry MD [place] [facility] Chest painSnoringSleep apnea, obstructive - not using cpap - In-person encounter Office Visit Dustin Chaudhry MD [place] [facility] - In-person encounter Office Visit Dustin Chaudhry MD [place] [facility] Abnormal electrocardiogramFamily Hx heart diseaseChest pain-type to be determinedTobacco abuse VITAL SIGNS Date Observation Value Provider Body Mass Index (Ratio) 29.49 kg/m2 [facility] pressure, diastolic 77 mm[Hg] [facility] blood pressure, systolic 127 mm[Hg] Radha [facility] oxygen saturation, oximetry 99 % [facility] pulse rate 79 /min [facility] respiratory rate E&M 12 /min [facility] weight E&M 194 [lb_av] [facility] height E&M 68 [in_i] [facility] blood pressure, cuff size regular An [facility] Body Mass Index (Ratio) 29.34 kg/m2 [facility] blood [facility], cuff size regular Ke rri Albert blood pressure, diastolic 70 mm[Hg] Ke rri Albert blood pressure, systolic 122 mm[Hg] Srikanth ri David oxygen saturation, oximetry 98 % Swapna Hernandez respiratory rate E&M 12 /min Swapna zimmerman pulse rate 80 /min Swapna Mercado [facility] weight E&M 193 [lb_av] Swapna Mercado [facility] height E&M 68 [in_i] Swapna Mercado [facility] Body Mass Index (Ratio) 29.34 kg/m2 [facility] pressure, diastolic 81 mm[Hg] St sujey [facility] blood pressure, systolic 134 mm[Hg] Golden devonte [facility] oxygen saturation, oximetry 98 % Dot [facility] respiratory rate E&M 16 /min Yusuf gaxiola [facility] pulse rate 77 /min Dot Noemt n weight E&M 193 [lb_av] Dot [facility] blood pressure, cuff size large St rm [facility] height E&M 68 [in_i] Dot [facility] Body Mass Index (Ratio) 29.65 kg/m2 [facility] blood pressure, cuff size large [...] Policy type / Coverage type Michael red libertarian ID [facility] [id number] ADVANCE DIRECTIVES Name Date DISCUSSED - NO DECISION MADE TREATMENT PLAN Date Name Performer [id number],C, B P today: 134/81 P rior BP: 106/72 (07/17/2022) Darrel Maherkrystyna [id number],C,d oes report of poor sleep quality and fatigue during the day time, will check home sleep study to rule out ASIM Darrelnarendra Maherkrystyna [id number],C,a ttributable to her lung process C hest x ray showed mild centreal peribronchial thickening suggestive of asthma or bronchitis. Darrel Ni [id number],C,she has stopp ed smoking Darrel Ni [id number],C,n ormal stress echo, chest pain is unlilkely to be from cardiac origin. I reviewed the importance of lifestyle and dietary modification with the patient. Darrel Ni [id number],S,P atient is advised to stop smoking. Will check CXR. Sugey Mei OPHTHALMOLOGY SURGICAL TECHNICIAN [id number],S,Will check CB C Sugey Mei OPHTHALMOLOGY SURGICAL TECHNICIAN [id number],B,C urrently well controlled on current regimen. H er updated medication list for this problem includes: Amlodipine 10 Mg Tablet (Amlodipine) Sugey Duquell OPHTHALMOLOGY SURGICAL TECHNICIAN [id number],N, Sugey Duque OPHTHALMOLOGY SURGICAL TECHNICIAN [id number],N,P atient with significant family history of premature CAD and personal history of chest pain and tobacco use. Will schedule for CMP, CBC, Lipids and thyroid studies as well as stress echo. Sugey Mei OPHTHALMOLOGY SURGICAL TECHNICIAN [id number],N,S T changes noted in I-III. H er updated medication list for this problem includes: Amlodipine 10 Mg Tablet (Amlodipine) Sugey Duquell OPHTHALMOLOGY SURGICAL TECHNICIAN Electrophysiology:Wi ll repeat study to assess if [...] given her smoking hx I recommend PFT [facility] Electrophysiology: B P today: 134/81 P rior BP: 106/72 (07/17/2022) [facility] Electrophysiology:do es report of poor sleep quality and fatigue during the day time, will check home sleep study to rule out ASIM [facility] Electrophysiology:at tributable to her lung process C hest x ray showed mild centreal peribronchial thickening suggestive of asthma or bronchitis. [facility] Electrophysiology:she has stoppe d smoking [facility] Electrophysiology:no rmal stress echo, chest pain [...] Amlodipine 10 Mg Tablet (Amlodipine) Sugey Mei OPHTHALMOLOGY SURGICAL TECHNICIAN Electrophysiology Sugey Mei OPHTHALMOLOGY SURGICAL TECHNICIAN Electrophysiology:Magdi vera with significant family history of premature CAD and personal history of chest pain and tobacco use. Will schedule for CMP, CBC, Lipids and thyroid studies as well as stress echo. Sugey Mei OPHTHALMOLOGY SURGICAL TECHNICIAN Electrophysiology:ST changes noted in I-III. H er updated medication list for this problem includes: Amlodipine 10 Mg Tablet (Amlodipine) Sugey Mei OPHTHALMOLOGY SURGICAL TECHNICIAN Date Name Sleep Study Home DLCO - 08380 FRC - 02063 FVC - 27853 Sleep Study Titratio n Sleep Study Home Stress Echo DLCO - 95748 FRC - 80920 FVC - 38627 CBC (INCLUDES DIFF/P LT) TSH, free T4, total T3 BASIC METABOLIC PANE L W/EGFR LIPID PANEL HISTORY OF PROCEDURES Procedure Date Procedure Name Provider Procedure Notes S tatus Complex e/m visit ad d on Dustin Chaudhry MD completed FVC / MVV - 78189 Dustin Chaudhry MD completed FRC - 48739 Dustin Chaudhry MD com pleted SpO2 w/o 6min walk/titration Dustin Chaudhry MD completed DLCO - 46497 Dustin Chaudhry MD co mpleted EKG Dustin Chaudhry MD comp leted EKG Dustin Chaudhry MD comp leted
--- OUTSIDE RECORDS SUMMARY | 2024-10-16 13:10 | XMS_ITS | Clinical Summary ---
Author Organization [facility] Address [address] [place] [address] Care Team Providers Care Mechanical Artist Name Role Phone Abby Benitez MD Primary Care Provider [phone] Medications losartan (COZAAR) 100 MG tablet Take [...] Encounters Date Type Department Care Team Description 10/13/2024 Telephone [facility] - [address], [address] [place] [address] Michelle Chaudhary APRN Referral 09/28/2024 Travel 09/28/2024 Blanca Message Enc [facility] [place] - [address], [address] [place] [address] Bl[facility] Provider Appointment Today 09/27/2024 Telephone [facility] [place] - [address], [address] [place] [address] Michelle Chaudhary APRN Appointment Reminder 08/03/2024 11:00 AM INSTRUCTIONAL TECHNOLOGY FACILITATOR [facility] [place] [facility] [address], [address] [place] [address] Michelle Chaudhary, [facility] New Patient (Cervical Spine ) 08/03/2024 Travel [...] Comments Blood Pressure 173/10 08/03/2024 11:29 AM INSTRUCTIONAL TECHNOLOGY FACILITATOR Pulse 70 08/03/2024 11:06 AM INSTRUCTIONAL TECHNOLOGY FACILITATOR Temperature 36.6 C (97.9 F) 08/03/2024 11:06 AM INSTRUCTIONAL TECHNOLOGY FACILITATOR Respiratory Rate - - Oxygen Saturation 99% 08/03/2024 11:06 AM INSTRUCTIONAL TECHNOLOGY FACILITATOR Inhaled Oxygen Concentration - - Weight 89.1 kg (196 lb 6.4 oz) 08/03/2024 11:06 AM INSTRUCTIONAL TECHNOLOGY FACILITATOR Height 172.7 cm (5' 8 ) 08/03/2024 11:06 AM INSTRUCTIONAL TECHNOLOGY FACILITATOR Body Mass Index 29.86 08/03/2024 11:06 AM INSTRUCTIONAL TECHNOLOGY FACILITATOR Plan of Treatment Health Maintenance Due Date Last Done Comments Cervical Cancer Screening Pa p Smear (Age 30 to 64) Every 3 Years 1981 Annual Physical 1984 Hepatitis C 10/15/1999 DTaP, Tdap and Td Vaccines ( 1 - Tdap) 2000 Hepatitis B Vaccines (1 of 3 - 19+ 3-dose series) 2000 Pneumococcal Vaccine: Pediat rics (0 to 5 Years) and At-Risk Patients (6 to 49 Years) (1 of 2 - PCV) 2000 Cervical Cancer Screening Pa p with HPV Testing (Age 30 to 64) Every 5 Years 10/15/2011 Cervical Cancer Screening with HPV 10/15/2011 Mammogram Screening 2021 COVID-19 Vaccine (2023-2 5 season) 2024 PHQ-2 (Physician [place]) Completed 08/03/2024 HPV Vaccines Aged Out No [...] patient's age to complete this topic Insurance [place] [address] Care Teams Mechanical Artist Relationship Specialty Start Date End Date Abby Benitez MD [address] [place] [address] PCP - General INTERNAL MEDICINE 02/04/24
== END 2024-10-16 12:48 | disposition home or self-care (01) ==
PROVIDERS: Visit Provider Internal Medicine
DX: E04.1 Nontoxic single thyroid nodule (principal)
CPT/HCPCS: 10005; 88172; 88173; 88305